=== PATIENT | male | born 1945 | race Caucasian/White ===

== ENCOUNTER 2017-12-27 04:51 | Inpatient (IN) | payer OTHER ==
[2017-12-19 08:27] VITALS: BMI 31.0
--- NOTE | 2017-12-19 09:07 | PAT Medication Instructions ---
Service Date Dec 19, 2017. 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 Instructions For Your Scheduled Surgery - Check with surgeon and locate technician for instructions: Aspirin (Aspir-81), 81 MG PO HS - Hold the following medications 24 hours prior to surgery: Niacin (Niaspan Ext Rel), 500 MG PO HS - Hold the following medications the morning of surgery: Chlorthalidone (Hygroton), 12.5 MG PO QAM Multivitamin (Multivitamin), 1 TAB PO QAM Losartan Potassium (Cozaar), 25 MG PO QAM Guaifenesin (Mucinex Maximum Strength), 1 TAB PO Q12H - Take the following medications the morning of surgery with a sip of water: Oxymetazoline Hcl (Dristan Lingle), 1-2 SPRAYS INTNAS PRN Omeprazole (Prilosec), 20 MG PO QAM Metoprolol Succ (Toprol Xl) (Toprol-Xl), 25 MG PO QAM - Take the following medications as scheduled the night before surgery: [Ana Selzer], 1 TAB PO HS PRN for RN (if needed) Simvastatin (Zocor), 40 MG PO HS Tamsulosin HCl (Tamsulosin HCl), 0.4 MG PO HS Potassium (Potassium), 99 MG PO HS Oxymetazoline Hcl (Dristan Lingle), 1-2 SPRAYS INTNAS PRN (if needed) Guaifenesin (Mucinex Maximum Strength), 1 TAB PO Q12H (if needed) If you have any questions please call us at [phone] or [phone] or [phone]
[~2017-12-27] VITALS: Ht 172.7 cm; Wt 93.5 kg
[2017-12-27] VITALS (11 sets, daily range): BP systolic 116–151; BP diastolic 77–96; PULSE 92–112; TEMP 36.4–36.9; O2SAT 90–98; Ht 172.7 cm; Wt 93.5 kg
[~2017-12-27 04:51] MED LIST: ALKA SELZER PO; ASPI-232 PO; FLM4 PO; GUAI1TAB69 PO; HYG/25 PO; LOSA25TA18 PO; METO25TA3 PO; MULT-506 PO; NIAC500T83 PO; POTA99TA PO; PRLSR20 PO; SIMV40TA4 PO; [UNRECOGNIZED DRUG - CODE] INTNAS
[2017-12-27] MEDS ORDERED: LACTATED RINGER'S 1000ML 1,000 ML IV SCH (06:00)
[2017-12-27] MEDS ORDERED: CEFAZOLIN 2000 MG/60 ML D5W 60 ML IV SCH (06:00)
[2017-12-27] MEDS ORDERED: CEFAZOLIN 2000MG IV PUSH 15 ML IV SCH (06:00)
[2017-12-27] MEDS ORDERED: LIDOCAINE HCL 2% 2 ML VIAL (20MG/ML) ONE (06:32)
[2017-12-27] MEDS ORDERED: ONDANSETRON INJ 2 MG/ML 2 ML VIAL ONE ×2 (06:32→09:35)
[2017-12-27] MEDS ORDERED: HYDROmorphone INJ 2 MG/ML SYR/VIAL ONE (06:32)
[2017-12-27] MEDS ORDERED: PROPOFOL IV EMULSION 10 MG/ML 20 ML VIAL IV ONE (06:32)
[2017-12-27] MEDS ORDERED: FENTANYL CITRATE INJ 50 MCG/1 ML 2 ML VIAL ONE ×3 (06:32→09:28)
[2017-12-27] MEDS ORDERED: SODIUM CHLORIDE 0.9% INJ 10 ML VIAL ONE (06:34)
[2017-12-27] MEDS ORDERED: ACETAMINOPHEN 1000 MG/100 ML IV IV ONE (06:43)
[2017-12-27] MEDS ORDERED: LIDOCAINE HCL 1% 20 ML VIAL ONE (06:53)
[2017-12-27] MEDS ORDERED: BUPIVACAINE 0.5 % 5 MG/1 ML MPF 30ML VIAL ONE (06:53)
[2017-12-27] MEDS ORDERED: BACITRACIN OINT 15 GM TUBE ONE (06:53)
--- NOTE | 2017-12-27 06:55 | History & Physical Bridge Note ---
H&P Re-Evaluation Bridge Note: I have examined the patient, reviewed the History & Physical and in the interval since the performance of the History & Physical I have noted the following changes of clinical significance: No changes noted
[2017-12-27] MEDS ORDERED: ONDANSETRON INJ 2 MG/ML 2 ML VIAL IV PRN (08:45)
[2017-12-27] MEDS ORDERED: EpHEDrine SULFATE INJ 50 MG/ML AMP IV PRN (08:45)
[2017-12-27] MEDS ORDERED: FENTANYL CITRATE INJ 50 MCG/1 ML 2 ML VIAL IV PRN (08:45)
[2017-12-27] MEDS ORDERED: HYDROmorphone INJ 1 MG/ML SYR IV PRN (08:45)
[2017-12-27] MEDS ORDERED: ATROPINE SULFATE 0.1 MG/ML 5ML SYR IV PRN (08:45)
[2017-12-27] MEDS ORDERED: NEOSTIGMINE METHYLSULFATE 5 MG/5 ML SYR ONE (09:35)
[2017-12-27] MEDS ORDERED: GLYCOPYRROLATE INJ 0.2 MG/ML VIAL ONE (09:35)
[2017-12-27] MEDS ORDERED: ROCURONIUM BROMIDE 10 MG/ML 5 ML VIAL IV ONE (10:17)
--- NOTE | 2017-12-27 10:48 | [facility] Post Operative Brief Note ---
Immediate Operative Summary Operative Date Dec 27, 2017. Pre-Operative Diagnosis Multiple colon polyps Post-Operative Diagnosis Same Procedure(s) Performed Right Hemicolectomy Surgeon Dr Ann Fan Blade Aligner Surgeon(s) Manda Diana PA-C Estimated Blood Loss 30ML Findings Consistent with Post-Op Diagnosis same as pre-op Fluids (cc crystalloids) 1500ml Specimens A. Right colon Drains None Anesthesia Type General Complication(s) none Disposition Accompanied Pt To Recover: yes Disposition: Recovery Room / PACU
[2017-12-27] MEDS ORDERED: MIDAZOLAM HCL 1 MG/ML 2ML VIAL ONE (10:55)
[2017-12-27] MEDS ORDERED: MoRPHine SULFATE 2 MG/ML CARP IV PRN (11:15)
[2017-12-27] MEDS ORDERED: NURSING VERBAL MED ORDER ONE ×3 (11:45→16:45)
[2017-12-27] MEDS ORDERED: METOPROLOL TARTRATE 1 MG/ML VIAL ONE (11:58)
[2017-12-27] MEDS ORDERED: ALBUT/IPRATROP 3MG/0.5MG NEB 3 ML VIAL INH SCH (12:00)
[2017-12-27] MEDS ORDERED: METOPROLOL TARTRATE 1 MG/ML VIAL IV PRN (12:15)
--- NOTE | 2017-12-27 13:13 | Anesthesiology Progress Note ---
Anesthesia Post Op Note Date & Time Dec 27, 2017 at 13:11 Vital Signs Pain Intensity: 0 Vital Signs Past 12 Hours Date Time Temp Pulse Resp B/P (MAP) Pulse Ox O2 Delivery O2 Flow Rate FiO2 12/27/17 12:30 106 16 129/74 100 Nasal Cannula 4 12/27/17 12:20 107 16 117/70 97 Nasal Cannula 4 12/27/17 12:10 36.3 101 16 98/74 99 Nasal Cannula 4 12/27/17 12:08 107 103/82 12/27/17 12:00 110 16 116/82 97 Nasal Cannula 4 12/27/17 12:00 111 116/82 12/27/17 11:50 104 18 106/68 97 Nasal Cannula 4 12/27/17 11:48 102 18 96 Nasal Cannula 4.0 12/27/17 11:40 83 18 116/70 94 Nasal Cannula 4 12/27/17 11:30 92 18 96/67 97 Oxymask 10 12/27/17 11:20 92 20 93/68 97 Oxymask 10 12/27/17 11:10 36.4 91 22 123/78 99 Oxymask 15 12/27/17 05:44 36.4 93 20 135/91 94 Room Air Notes Mental Status: alert / awake / arousable, participated in evaluation Pt Amnestic to Procedure: Yes Nausea / Vomiting: adequately controlled Pain: adequately controlled Airway Patency, RR, SpO2: stable & adequate BP & HR: stable & adequate Hydration State: stable & adequate Anesthetic Complications: no major complications apparent The patient with HR 110 after Duoneb given. He was given metoprolol 5mg IV. HR between the 90s and low 100s. Patient did not take his beta dillon today and preop HR was 93. BP stable. Patient feeling well otherwise with no complaints. Patient will be going to telemetry for continuous monitoring. .
[2017-12-27] MEDS ORDERED: D5W AND 1/2NSS + 20MEQ KCL 1,000 ML IV SCH (13:30)
[2017-12-27] MEDS: ONDANSETRON INJ 2 MG/ML 2 ML VIAL IV PRN (15:50)
[2017-12-27] MEDS: HYDROmorphone INJ 1 MG/ML SYR IV PRN ×3 (15:50→23:31)
[2017-12-27] MEDS: CEFTRIAXONE SOD INJ 1 GM in DEXTROSE 5% ADD-VANTAGE 50ML 50 ML IV SCH (19:50)
[2017-12-27 20:56] LABS: HEMATOCRIT 42.2 % (42-52); HEMOGLOBIN 14.9 g/dL (14.0-18.0); MEAN CELL VOLUME 90.8 fL (80-100); MEAN PLATELET VOLUME 8.6 fL (7.4-10.4); PLATELET COUNT 160 K/uL (130-400); RED CELL DISTRIBUTION WIDTH CV 13.9 % (11.5-14.5); RED CELL DISTRIBUTION WIDTH SD 45.7 fL (36.4-46.3); WHITE BLOOD COUNT 16.31 K/uL (4.8-10.8)
[2017-12-27 20:58] LABS: MEAN CORPUSCULAR HGB CONC 35.3 g/dl (32-36)
[2017-12-27 21:18] LABS: CALCIUM 8.1 mg/dl (8.5-10.1); CREATININE 1.6 mg/dl (0.60-1.40); POTASSIUM 3.5 mmol/L (3.5-5.1)
--- NOTE | 2017-12-27 21:20 | Progress Note ---
Progress Note Date of Service Dec 27, 2017. Progress Note ATTENDING NOTE : pt seen and examined, care co ordinated with Roshni Newsome PA-C labs and images reviewed 72 yo M with complicated past medical hx of AAA repair , moderate left carotid artery disease , HTN , hyperlipidemia , hx of palpitation due to PVC , HTN underwent elective Rt Hemicolectomy done for multiple tubular adenoma pt had uneventful surgical procedure seen post op in PCU room 243 -1 no complain of chest pain /pressure /palpitation or SOB mentions NG tube bothering a bit minimum post surgical pain in abdomen -got pain medications 30 mins back not able to pass gas yet P/E: gen: no apparent distress HEENT: NG tube present , with dark bilious drainage Lungs; CTA HT : regular , no lower ext edema, no JVD Abdomen; abdomen binder present , moderately distended abdomen , bowel sound diminished Ext; no rash or deformity Neuro ; no focal deficit A/P : TUBULAR ADENOMA OF COLON: multiple adenomatous polyp noted in Colonoscopy in 01/2017 -was referred to Rt hemicolectomy by GI evaluated by General surgery Dr Ann underwent Rt hemicolectomy today -no perioperative or post op complication noted pathology pending pt is NPO with NG suction reports of adequate pain management with current regimen cont management as per Surgery team HYPONATREMIA : Na 133 changed IVF to NSS + 20 Kcl @ 100 ml/hr ( increased K loss with NG suction / recent bowel resection ) follow PRP in AM CURTIS ON CKD STAGE 3 : baseline Cr 1.4 possible due to post op status /vol loss IVF as above avoid NSAID's follow PRP in AM HX OF ENDOVASCULAR REPAIR OF AAA: on 07/25/13 -stable as per recent Abdomen CT , follows with vascular surgery MODERATE LEFT CAROTID DISEASE : 50-60% narrowing on left ICA gets yearly carotid Doppler pt should be resumed Aspirin , Statin when able to tolerate PO /Ok per surgical team HX OF PVC /PALPITATION : on Toprol XL 25 mg daily tele reveals normal sinus , pt denies of any symptom of palpitation pt had pre op cardiac eval done by Dr Olsen [facility]2017 was negative for stress induced ischemia NPO for recent colon surgery ordered for IV Lopressor 2.5 mg Q 6hrs monitor in tele 24-48 hrs post op full code DVT PROPHYLAXIS: scd and teds -recent colon surgery encourage early ambulation Please refer to further documentation of Nai Newsome PA-C for further discussion of other issues thank you for allowing us to participate in care of the patient will continue to follow the pt during his hospital course Dr Antonio will follow this pt in AM 12/28/17 Vaishali Marin MD
--- NOTE | 2017-12-27 22:04 | Medical Consult ---
Consultation Date of Consultation: Dec 27, 2017. Attending Physician: Cris Ann MD Reason for Consultation: medical management History of Present Illness Pt is 72 y/o M with PMH HTN, dyslipidemia, GERD, CKD III, abdominal aneurysm repair, hx palpitations with PVC's, carotid vascular disease is seen for medical consult s/p R hemicolectomy by Dr Ann today for multiple colon polyps. Pt has NG tube in place. He states moderate abdominal pain that is being controlled with Dilaudid. Has Miller in place and denies any BM or flatulence after surgery. Denies N/V, fever/chills, diaphoresis, HELMS, dizziness, neck pain, CP, SOB, palpitations, cough, paresthesias, extremity weakness, extremity edema , rashes. Past Medical/Surgical History Medical Problems: (1) Abdominal aortic aneurysm Status: Chronic (2) Aneurysm Status: Resolved (3) Benign hypertension Status: Chronic (4) Carotid artery stenosis Status: Chronic (5) Chronic obstructive lung disease Status: Chronic (6) CKD (chronic kidney disease), stage III Status: Chronic (7) Cough Status: Resolved (8) Diverticular disease of colon Status: Resolved (9) Dyslipidemia Status: Chronic (10) Elevated D-dimer Status: Resolved (11) Finger laceration involving tendon Status: Resolved (12) Gastroesophageal reflux disease Status: Chronic (13) GERD (gastroesophageal reflux disease) Status: Chronic (14) Headache Status: Resolved (15) NO MRI SCANS Permanent Comment: s/p clipping intracranial aneurysm Status: Chronic (16) Repair cerebral aneurysm Status: Resolved (17) Spontaneous pneumothorax Status: Resolved Surgical Problems: (1) Back surgery Status: Resolved (2) Cholecystectomy Status: Resolved (3) Hernia repair Status: Resolved (4) History of abdominal aortic aneurysm repair Status: Resolved Family History Unable to obtain as pt was foster child and unaware of FH Social History Smoking Status: Former Smoker Smokeless Tobacco Use: No Alcohol Use: none Drug Use: none Marital Status: Housing Status: lives with family Occupation Status: employed Allergies Coded Allergies: Heparin (Verified Allergy, Severe, Do not give the patient IV heparin or SubQ heparin, 12/27/17) FOR [id number] ADMISSION Hydralazine (Verified Adverse Reaction, Intermediate, DELIRIUM, 12/27/17) ALEXIA Inhibitors (Verified Adverse Reaction, Unknown, COUGH, 12/27/17) Salicylates (Verified Adverse Reaction, Unknown, STOMACH IRRITATION, ) Home Medications Active Reported Dristan [place] (Oxymetazoline Hcl) 0.05 % Spr 1-2 Sprays INTNAS BID PRN 3 Days max of 3 days Tamsulosin HCl 0.4 Mg Cap 0.4 Mg PO HS Potassium 99 Mg Tab 99 Mg PO HS Cozaar (Losartan Potassium) 25 Mg Tab 25 Mg PO QAM Aspir-81 (Aspirin) 81 Mg Tab 81 Mg PO DAILY Niaspan Ext Rel (Niacin) 500 Mg Tabcr 500 Mg PO HS Hygroton (Chlorthalidone) 25 Mg Tab 12.5 Mg PO QAM Zocor (Simvastatin) 40 Mg Tab 40 Mg PO HS Toprol-Xl (Metoprolol Succinate) 25 Mg Tabcr 25 Mg PO QAM Multivitamin (Multivitamins) Tab 1 Tab PO QAM Prilosec (Omeprazole) 20 Mg Capcr 20 Mg PO QAM Current Inpatient Medications Current Inpatient Medications Medications (Trade) Dose Ordered Sig/Luis Route Start Time Stop Time Status Last Admin Dose Admin Potassium Chloride/Dextrose/ Sod Cl 1,000 ml @ 100 mls/hr Q10H IV 12/27/17 13:30 01/26/18 13:29 12/27/17 14:09 100 MLS/HR Ceftriaxone Sodium 1 gm/ Dextrose 50 ml @ 100 mls/hr Q12 IV 12/27/17 21:00 12/28/17 20:59 12/27/17 19:50 100 MLS/HR Ondansetron HCl (Zofran Inj) 4 mg Q4H PRN IV 12/27/17 11:15 01/26/18 11:14 12/27/17 15:50 4 MG Morphine Sulfate (MoRPHine SULFATE INJ) 2 mg Q3HWA PRN IV 12/27/17 11:15 01/10/18 11:14 Hydromorphone HCl (Dilaudid Inj) 1 mg Q3H PRN IV 12/27/17 11:15 01/10/18 11:14 Hydromorphone HCl (Dilaudid Inj) 1 mg Q3H PRN IV 12/27/17 11:15 01/10/18 11:14 12/27/17 19:50 1 MG Metoprolol Tartrate (Lopressor Iv) 2.5 mg Q6 IV. 12/27/17 20:30 3/8/18 20:29 UNV Review of Systems See HPI for pertinent positives & negatives. All other systems reviewed and were otherwise negative Eyes: No diplopia ENT: No nasal symptoms Physical Exam Date Time Temp Pulse Resp B/P (MAP) Pulse Ox O2 Delivery O2 Flow Rate FiO2 12/27/17 19:50 36.9 101 21 138/78 (98) 93 Nasal Cannula 4.0 12/27/17 16:00 Nasal Cannula 4.0 12/27/17 15:23 36.8 112 22 151/96 (114) 92 Nasal Cannula 4.0 12/27/17 14:00 36.5 108 18 135/87 (103) 92 Nasal Cannula 4.0 12/27/17 14:00 36.5 110 18 127/83 (98) 93 Nasal Cannula 4.0 12/27/17 13:30 36.4 109 18 137/84 (101) 92 Nasal Cannula 4.0 12/27/17 13:15 36.4 110 18 118/78 (91) 92 Nasal Cannula 4.0 12/27/17 13:03 36.4 108 18 124/77 90 Nasal Cannula 4.0 12/27/17 13:00 36.4 107 18 116/77 (90) 92 Nasal Cannula 4.0 12/27/17 12:45 36.4 108 18 124/77 (93) 98 Nasal Cannula 4.0 108 12/27/17 12:30 106 16 129/74 100 Nasal Cannula 4 12/27/17 12:20 107 16 117/70 97 Nasal Cannula 4 12/27/17 12:10 36.3 101 16 98/74 99 Nasal Cannula 4 12/27/17 12:08 107 103/82 12/27/17 12:00 110 16 116/82 97 Nasal Cannula 4 12/27/17 12:00 111 116/82 12/27/17 11:50 104 18 106/68 97 Nasal Cannula 4 12/27/17 11:48 102 18 96 Nasal Cannula 4.0 12/27/17 11:40 83 18 116/70 94 Nasal Cannula 4 12/27/17 11:30 92 18 96/67 97 Oxymask 10 12/27/17 11:20 92 20 93/68 97 Oxymask 10 12/27/17 11:10 36.4 91 22 123/78 99 Oxymask 15 12/27/17 05:44 36.4 93 20 135/91 94 Room Air General Appearance: WD/WN, no apparent distress (resting in bed) Head: normocephalic, atraumatic Eyes: normal inspection, PERRL, EOMI, sclerae normal ENT: hearing grossly normal, pharynx normal, + pertinent finding (mucous membranes moist) Neck: supple, no JVD, trachea midline Respiratory/Chest: lungs clear, normal breath sounds, no respiratory distress Cardiovascular: no murmur, normal peripheral pulses, + tachycardia (102) Abdomen/GI: + pertinent finding (quiet bs, dressing in place to anterior abdomen, slight bloody discharge noted on dressing, abdominal binder in place, tenderness with manipulation of binder, soft) Extremities/Musculoskelatal: normal capillary refill, no pedal edema, non- tender, + pertinent finding (pedal pushes and pulls intact bilaterally, pt with SCD's) Neurologic/Psych: alert, normal mood/affect, oriented x 3 Skin: normal color, warm/dry Laboratory Results Last 24 Hours Test 12/27/17 20:42 White Blood Count 16.31 K/uL Red Blood Count 4.65 M/uL Hemoglobin 14.9 g/dL Hematocrit 42.2 % Mean Corpuscular Volume 90.8 fL Mean Corpuscular Hemoglobin 32.0 pg Mean Corpuscular Hemoglobin Concent 35.3 g/dl RDW Standard Deviation 45.7 fL RDW Coefficient of Variation 13.9 % Platelet Count 160 K/uL Mean Platelet Volume 8.6 fL Assessment & Plan Pt post op day# 0 S/P R Hemicolectomy by Dr Ann for multiple adenomatous colon polyps Pt with NG tube in place and NPO at this time -pain management per general surgery -wound management per surgery -PT/OT as appropriate -DVT prophylaxis per surgery -monitor H&H for acute blood loss anemia HYPONATREMIA Na 133 changed IVF to NSS + 20 Kcl ( increased K loss with NG suction /recent bowel resection ) follow PRP MODERATE LEFT CAROTID DISEASE Hx 50-60% narrowing on left ICA Pt NPO currently, however suggest resuming ASA, simvastatin when able per surgery team HX ABDOMINAL ANEURYSM REPAIR F/U with vascular surgery and recent abd ct is stable HX OF PVC's /PALPITATIONS Pt follows with cardiology, had pre-op clearance in 12/[address] Downing. Sinus rhythm on monitor today. Denies any palpitations, CP, or SOB currently Pt on metoprolol, however is NPO currently. Lopressor 2.5 mg IV Q 6hrs ordered Continue to monitor DYSLIPIDEMIA holding simvastatin at this time with pt being NPO HTN stable currently holding oral losartan and metoprolol as pt is NPO. Lopressor IV ordered continue to monitor DVT Prophylaxis -per surgery team Disposition admitted tele Full Code as per discussion with pt Follows with Dr Torres for routine care Pt was seen with Dr Marin. See addendum Pt will be followed by Dr Antonio throughout remaining hospital course ATTENDING NOTE : pt seen and examined, care co ordinated with Roshni Newsome PA-C labs and images reviewed 72 yo M with complicated past medical hx of AAA repair , moderate left carotid artery disease , HTN , hyperlipidemia , hx of palpitation due to PVC , HTN underwent elective Rt Hemicolectomy done for multiple tubular adenoma pt had uneventful surgical procedure seen post op in PCU room 243 -1 no complain of chest pain /pressure /palpitation or SOB mentions NG tube bothering a bit minimum post surgical pain in abdomen -got pain medications 30 mins back not able to pass gas yet P/E: gen: no apparent distress HEENT: NG tube present , with dark bilious drainage Lungs; CTA HT : regular , no lower ext edema, no JVD Abdomen; abdomen binder present , moderately distended abdomen , bowel sound diminished Ext; no rash or deformity Neuro ; no focal deficit A/P : TUBULAR ADENOMA OF COLON: multiple adenomatous polyp noted in Colonoscopy in 01/2017 -was referred to Rt hemicolectomy by GI evaluated by General surgery Dr Ann underwent Rt hemicolectomy today -no perioperative or post op complication noted pathology pending pt is NPO with NG suction reports of adequate pain management with current regimen cont management as per Surgery team HYPONATREMIA : Na 133 changed IVF to NSS + 20 Kcl @ 100 ml/hr ( increased K loss with NG suction / recent bowel resection ) follow PRP in AM CURTIS ON CKD STAGE 3 : baseline Cr 1.4 possible due to post op status /vol loss IVF as above avoid NSAID's follow PRP in AM HX OF ENDOVASCULAR REPAIR OF AAA: on 07/25/13 -stable as per recent Abdomen CT , follows with vascular surgery MODERATE LEFT CAROTID DISEASE : 50-60% narrowing on left ICA gets yearly carotid Doppler pt should be resumed Aspirin , Statin when able to tolerate PO /Ok per surgical team HX OF PVC /PALPITATION : on Toprol XL 25 mg daily tele reveals normal sinus , pt denies of any symptom of palpitation pt had pre op cardiac eval done by Dr Raúl Hardy [facility] stress test on 04/2017 was negative for stress induced ischemia NPO for recent colon surgery ordered for IV Lopressor 2.5 mg Q 6hrs monitor in tele 24-48 hrs post op full code DVT PROPHYLAXIS: scd and teds -recent colon surgery encourage early ambulation Please refer to further documentation of Nai Newsome PA-C for further discussion of other issues thank you for allowing us to participate in care of the patient will continue to follow the pt during his hospital course Dr Antonio will follow this pt in AM 12/28/17 Vaishali Marin MD
[2017-12-27] MEDS: NSS + 20MEQ KCL 1000ML 1,000 ML IV SCH (22:34)
[2017-12-27] MEDS: METOPROLOL TARTRATE 1 MG/ML VIAL IV. SCH (22:37)
[2017-12-28] MEDS: METOPROLOL TARTRATE 1 MG/ML VIAL IV. SCH ×5 (00:08→23:32)
[2017-12-28] MEDS: HYDROmorphone INJ 1 MG/ML SYR IV PRN ×6 (03:08→22:49)
[2017-12-28 03:30] VITALS: BP 130/76; PULSE 87; TEMP 36.6; O2SAT 92
[2017-12-28] MEDS ORDERED: CEFAZOLIN SOD 2000MG/15 ML IV PUSH IV ONE (06:00)
[2017-12-28 07:14] LABS: BASO % 0.1 %; BASO ABS # 0.01 K/uL (0-0.2); HEMATOCRIT 42.7 % (42-52); HEMOGLOBIN 14.8 g/dL (14.0-18.0); IG# 0.02 K/uL (0.00-0.02); LYMPH % 10.1 %; LYMPH ABS # 1.42 K/uL (1.2-3.4); MEAN CELL VOLUME 91.8 fL (80-100); MEAN CORPUSCULAR HEMOGLOBIN 31.8 pg (25-34); MEAN CORPUSCULAR HGB CONC 34.7 g/dl (32-36); MEAN PLATELET VOLUME 8.7 fL (7.4-10.4); MONO ABS # 1.69 K/uL (0.11-0.59); NEUT % 77.7 %; NEUT ABS # 10.92 K/uL (1.4-6.5); PLATELET COUNT 161 K/uL (130-400); RED CELL DISTRIBUTION WIDTH CV 14.2 % (11.5-14.5); RED CELL DISTRIBUTION WIDTH SD 47.7 fL (36.4-46.3); WHITE BLOOD COUNT 14.06 K/uL (4.8-10.8)
[2017-12-28 07:59] VITALS: BP 128/82; PULSE 83; TEMP 37.1; O2SAT 92
[2017-12-28 08:02] LABS: ALBUMIN 3.1 gm/dl (3.4-5.0); CALCIUM 8.1 mg/dl (8.5-10.1); CREATININE 1.34 mg/dl (0.60-1.40); POTASSIUM 3.7 mmol/L (3.5-5.1); TOTAL PROTEIN 6.6 gm/dl (6.4-8.2)
--- NOTE | 2017-12-28 08:06 | OPERATIVE REPORT ---
DATE OF OPERATION: 12/27/2017 PREOPERATIVE DIAGNOSIS: Multiple colon polyps. POSTOPERATIVE DIAGNOSIS: Same. OPERATION: Right hemicolectomy. SURGEON: Cris Ann MD FASTENER SEWING MACHINE OPERATOR: EUGENE Porter ANESTHESIA: General. ESTIMATED BLOOD LOSS: About 30 mL. FINDINGS: Multiple colon polyps. COMPLICATIONS: None. INDICATIONS FOR THE PROCEDURE: This is a 72-year-old gentleman who is referred by the GI doctor for postop colonoscopy polypectomy and patient had multiple polyps mostly on the right side colon. The patient referred to do the right hemicolectomy. I did talk to the patient and patient's family member about the benefit and risk, alternate procedure. I indicated the risks may include but not limited such as bleeding, infection, abscess, anastomosis leak, injury to bowel, fistular sepsis, myocardial infarction, DVT, stroke, even . They understand. The patient signed informed consent and I answered all questions. DETAILS OF PROCEDURE: We brought the patient to the OR, put the patient in the supine position. The patient received SCD on bilateral legs to prevent DVT. Also, the patient received 2 grams Ancef IV for prophylactic antibiotic. The patient received general anesthesia without difficulty. Miller catheter inserted. The abdomen was prepped and draped in routine sterile fashion. After time out, I made a midline incision into the abdominal cavity without difficulty, explored the abdomen, checked the liver and no lesions on the liver and stomach shows normal findings and small bowel normal finding, no free fluid in the abdominal cavity. NG tube was located in the stomach and then I mobilized lateral peritoneum for right side of the colon and did reach to the transverse colon. We took down the hepatic ligature, used the harmonic and the right-sided ureter and duodenum identified and protected all times. Then we took down the right ileocolic artery with metal clip and also with suture ligation with 2-0 Vicryl and also I took down the right colon and double suture ligated the right colon artery at the proximal and ligated right colon artery at the distal and transected the right colon. Once the colon mobilized, reached the middle of the transverse colon, keep blood supply to the middle of the colon and then I mobilized the small bowel. It was 10 cm from the cecum and that showed small bowel to large bowel anastomosis from 10 cm of cecum to the transverse colon in the middle, good blood supply on the small bowel, large bowel and I used an 80 mm Endo-DONG staple for anastomosis to small bowel to large bowel. Rechecked, no active bleeding no leak. Then I chose the 90 mm TA staple to close the small bowel, large bowel opening. Then I used a knife to completely remove the specimen and rechecked no active bleeding, no leak on the anastomosis. Then I used 3-0 Vicryl, reinforced the anastomosis inter ruptedly and then I closed the mesenteric defect, used 3-0 Vicryl interruptedly. The anastomosis site was wide open and no tension. Hemostasis was obtained. Then we used normal saline to flush the abdomen and suctioned all the fluid, no active bleeding, no injury to bowel, good blood circulation on the anastomosis, small bowel, large bowel. Then I closed the abdomen in fascial layer by using #1 PDS continuous running and closed subcutaneous layer by using 2-0 Vicryl continuous running, closed skin by using staple. We put the dressing on. The patient tolerated the procedure well. All the instrument, needle and sponge count correct x2 at the end of the case. The specimen sent to pathology. The patient was extubated in the OR and transferred to recovery room in stable condition. After the procedure, I did talk to the patient's family member about the OR finding and procedure we did, they understand. I attest to the content of the Intraoperative Record and any orders documented therein. Any exceptions are noted below. STANISLAV
[2017-12-28] MEDS: NSS + 20MEQ KCL 1000ML 1,000 ML IV SCH ×2 (08:11→17:29)
[2017-12-28] MEDS: CEFTRIAXONE SOD INJ 1 GM in DEXTROSE 5% ADD-VANTAGE 50ML 50 ML IV SCH (08:12)
--- NOTE | 2017-12-28 09:54 | Surgery Progress Note ---
Surgery Progress Note Date of Service Dec 28, 2017. Subjective Post OP Day: 1 pt is stable over night, pt develops headach because of NG tube, pt said he can not tolerated the NG tube, pt wants to remove NG tube, pt denies nausea, no vomiting, Objective Vital Signs: Date Time Temp Pulse Resp B/P (MAP) Pulse Ox O2 Delivery O2 Flow Rate FiO2 12/28/17 07:59 37.1 83 20 128/82 (97) 92 Nasal Cannula 4.0 12/28/17 05:52 88 149/82 12/28/17 04:00 Nasal Cannula 4.0 12/28/17 03:30 36.6 87 18 130/76 (94) 92 Nasal Cannula 4.0 12/28/17 00:08 88 124/75 12/28/17 00:01 Nasal Cannula 4.0 12/27/17 23:30 36.8 92 22 148/79 (102) 93 Room Air 12/27/17 22:37 96 137/80 12/27/17 20:00 Nasal Cannula 4.0 12/27/17 19:50 36.9 101 21 138/78 (98) 93 Nasal Cannula 4.0 12/27/17 16:00 Nasal Cannula 4.0 12/27/17 15:23 36.8 112 22 151/96 (114) 92 Nasal Cannula 4.0 12/27/17 14:00 36.5 108 18 135/87 (103) 92 Nasal Cannula 4.0 12/27/17 14:00 36.5 110 18 127/83 (98) 93 Nasal Cannula 4.0 12/27/17 13:30 36.4 109 18 137/84 (101) 92 Nasal Cannula 4.0 12/27/17 13:15 36.4 110 18 118/78 (91) 92 Nasal Cannula 4.0 12/27/17 13:03 36.4 108 18 124/77 90 Nasal Cannula 4.0 12/27/17 13:00 36.4 107 18 116/77 (90) 92 Nasal Cannula 4.0 12/27/17 12:45 36.4 108 18 124/77 (93) 98 Nasal Cannula 4.0 108 12/27/17 12:30 106 16 129/74 100 Nasal Cannula 4 12/27/17 12:20 107 16 117/70 97 Nasal Cannula 4 12/27/17 12:10 36.3 101 16 98/74 99 Nasal Cannula 4 12/27/17 12:08 107 103/82 12/27/17 12:00 110 16 116/82 97 Nasal Cannula 4 12/27/17 12:00 111 116/82 12/27/17 11:50 104 18 106/68 97 Nasal Cannula 4 12/27/17 11:48 102 18 96 Nasal Cannula 4.0 12/27/17 11:40 83 18 116/70 94 Nasal Cannula 4 12/27/17 11:30 92 18 96/67 97 Oxymask 10 12/27/17 11:20 92 20 93/68 97 Oxymask 10 12/27/17 11:10 36.4 91 22 123/78 99 Oxymask 15 General Appearance: WD/WN, no apparent distress Head: normocephalic Neck: supple, no adenopathy Respiratory/Chest: chest non-tender, lungs clear, normal breath sounds Cardiovascular: regular rate, rhythm, no edema, no gallop, no JVD, no murmur Abdomen: normal bowel sounds, non distended, soft, no organomegaly, + tenderness (slight tenderness at incision site, ) Incision(s): clean, dry, intact Extremities: normal range of motion, non-tender, normal inspection Laboratory Results: Results Past 24 Hours Test 12/27/17 20:42 12/28/17 06:49 Range/Units White Blood Count 16.31 14.06 4.8-10.8 K/uL Red Blood Count 4.65 4.65 4.7-6.1 M/uL Hemoglobin 14.9 14.8 14.0-18.0 g/dL Hematocrit 42.2 42.7 42-52 % Mean Corpuscular Volume 90.8 91.8 80-100 fL Mean Corpuscular Hemoglobin 32.0 31.8 25-34 pg Mean Corpuscular Hemoglobin Concent 35.3 34.7 32-36 g/dl RDW Standard Deviation 45.7 47.7 36.4-46.3 fL RDW Coefficient of Variation 13.9 14.2 11.5-14.5 % Platelet Count 160 161 130-400 K/uL Mean Platelet Volume 8.6 8.7 7.4-10.4 fL Sodium Level 133 135 136-145 mmol/L Potassium Level 3.5 3.7 3.5-5.1 mmol/L Chloride Level 99 101 98-107 mmol/L Carbon Dioxide Level 28 29 21-32 mmol/L Anion Gap 6.0 5.0 3-11 mmol/L Blood Urea Nitrogen 15 14 7-18 mg/dl Creatinine 1.60 1.34 0.60-1.40 mg/dl Est Creatinine Clear Calc Drug Dose 45.0 53.1 ml/min Estimated GFR () 48.5 60.1 Estimated GFR (Non- 41.8 51.8 BUN/Creatinine Ratio 9.5 10.7 10-20 Random Glucose 155 96 70-99 mg/dl Calcium Level 8.1 8.1 8.5-10.1 mg/dl Neutrophils (%) (Auto) 77.7 % Lymphocytes (%) (Auto) 10.1 % Monocytes (%) (Auto) 12.0 % Eosinophils (%) (Auto) 0.0 % Basophils (%) (Auto) 0.1 % Neutrophils # (Auto) 10.92 1.4-6.5 K/uL Lymphocytes # (Auto) 1.42 1.2-3.4 K/uL Monocytes # (Auto) 1.69 0.11-0.59 K/uL Eosinophils # (Auto) 0.00 0-0.5 K/uL Basophils # (Auto) 0.01 0-0.2 K/uL Immature Granulocyte % (Auto) 0.1 % Immature Granulocyte # (Auto) 0.02 0.00-0.02 K/uL Magnesium Level 1.8 1.8-2.4 mg/dl Total Bilirubin 0.6 0.2-1 mg/dl Aspartate Amino Transf (AST/SGOT) 37 15-37 U/L Alanine Aminotransferase (ALT/SGPT) 28 12-78 U/L Alkaline Phosphatase 59 45-117 U/L Total Protein 6.6 6.4-8.2 gm/dl Albumin 3.1 3.4-5.0 gm/dl Globulin 3.5 2.5-4.0 gm/dl Albumin/Globulin Ratio 0.9 0.9-2 Chemistry Specimen Hemolysis Assessment & Plan F/U S/P right himecolectomy, POD 1 stable, pt wants to remove the NG tube, the NG tube is removed, I instructed pt, pt may need re-insertion NG tube if he develops nausea, vomiting, could cause complication without NG tube, pt understood, I answered all questions, OOB base on high WBC [id number], and pt has sinus infection, start cipro + flagyl, continue treatment repeat labs in AM, will F/U
[2017-12-28 11:02] VITALS: BP 150/75; PULSE 88; TEMP 37.7; O2SAT 88
[2017-12-28] MEDS: METRONIDAZOLE / NSS 500 MG in PREMIXED NSS 100 ML IV SCH ×2 (11:30→17:29)
[2017-12-28 14:52] VITALS: BP 154/80; PULSE 97; TEMP 37.3; O2SAT 90
--- NOTE | 2017-12-28 14:59 | Progress Note ---
Internal Med Progress Note Date of Service: Dec 28, 2017. Provider Documentation: SUBJECTIVE: THe patient was seen and examined Complains of abdominal pain and nausea Denies any CP.Palpitation or SOB NGT is out OBJECTIVE: Vital Signs-as noted below Exam: General-Minimal distress at rest OOB in a chair Eyes-normal ENT-normal Neck-supple Lungs-Clear to ausucltate bilaterally Heart-Regular,no murmur Abdomen-Distended,firm,tender ,bowel sound sluggish Extremities-Trace edema bilaterally Neuro-AAOx3 Lab data as noted below. ASSESSMENT & PLAN: S/P R Hemicolectomy for multiple adenomatous colon polyps Pt post op day# 1 Pt with NG tube in place and NPO at this time-NGT os out now Management as per Surgeon Pain management per general surgery Has been on Cipro and Flagyl DVT prophylaxis per surgery Monitor H&H for acute blood loss anemia HYPONATREMIA Na 133 changed IVF to NSS + 20 Kcl ( increased K loss with NG suction /recent bowel resection ) follow PRP-better MODERATE LEFT CAROTID DISEASE Hx 50-60% narrowing on left ICA Pt NPO currently, however suggest resuming ASA, simvastatin when able per surgery team HX ABDOMINAL ANEURYSM REPAIR F/U with vascular surgery and recent abd ct is stable No acute issue HX OF PVC's /PALPITATIONS Pt follows with cardiology, had pre-op clearance in 12/[address] Downing. Sinus rhythm on monitor today. Denies any palpitations, CP, or SOB currently Pt on metoprolol, however is NPO currently. Lopressor 2.5 mg IV Q 6hrs ordered Continue to monitor-no more PVCs No cardiac symptoms DYSLIPIDEMIA Hold simvastatin at this time with pt being NPO HTN Holding oral losartan and metoprolol as pt is NPO. Lopressor IV ordered Remains stable DVT Prophylaxis -per surgery team Disposition admitted tele Full Code as per discussion with pt Follows with Dr Torres for routine care Vital Signs: Date Time Temp Pulse Resp B/P (MAP) Pulse Ox O2 Delivery O2 Flow Rate FiO2 12/28/17 12:00 Nasal Cannula 2.0 12/28/17 11:31 75 12/28/17 11:02 37.7 88 20 150/75 (100) 88 Room Air 12/28/17 08:00 Room Air 12/28/17 07:59 37.1 83 20 128/82 (97) 92 Nasal Cannula 4.0 12/28/17 05:52 88 149/82 12/28/17 04:00 Nasal Cannula 4.0 12/28/17 03:30 36.6 87 18 130/76 (94) 92 Nasal Cannula 4.0 12/28/17 00:08 88 124/75 12/28/17 00:01 Nasal Cannula 4.0 12/27/17 23:30 36.8 92 22 148/79 (102) 93 Room Air 12/27/17 22:37 96 137/80 12/27/17 20:00 Nasal Cannula 4.0 12/27/17 19:50 36.9 101 21 138/78 (98) 93 Nasal Cannula 4.0 12/27/17 16:00 Nasal Cannula 4.0 12/27/17 15:23 36.8 112 22 151/96 (114) 92 Nasal Cannula 4.0 Lab Results: Results Past 24 Hours Test 12/27/17 20:42 12/28/17 06:49 Range/Units White Blood Count 16.31 14.06 4.8-10.8 K/uL Red Blood Count 4.65 4.65 4.7-6.1 M/uL Hemoglobin 14.9 14.8 14.0-18.0 g/dL Hematocrit 42.2 42.7 42-52 % Mean Corpuscular Volume 90.8 91.8 80-100 fL Mean Corpuscular Hemoglobin 32.0 31.8 25-34 pg Mean Corpuscular Hemoglobin Concent 35.3 34.7 32-36 g/dl RDW Standard Deviation 45.7 47.7 36.4-46.3 fL RDW Coefficient of Variation 13.9 14.2 11.5-14.5 % Platelet Count 160 161 130-400 K/uL Mean Platelet Volume 8.6 8.7 7.4-10.4 fL Sodium Level 133 135 136-145 mmol/L Potassium Level 3.5 3.7 3.5-5.1 mmol/L Chloride Level 99 101 98-107 mmol/L Carbon Dioxide Level 28 29 21-32 mmol/L Anion Gap 6.0 5.0 3-11 mmol/L Blood Urea Nitrogen 15 14 7-18 mg/dl Creatinine 1.60 1.34 0.60-1.40 mg/dl Est Creatinine Clear Calc Drug Dose 45.0 53.1 ml/min Estimated GFR () 48.5 60.1 Estimated GFR (Non- 41.8 51.8 BUN/Creatinine Ratio 9.5 10.7 10-20 Random Glucose 155 96 70-99 mg/dl Calcium Level 8.1 8.1 8.5-10.1 mg/dl Neutrophils (%) (Auto) 77.7 % Lymphocytes (%) (Auto) 10.1 % Monocytes (%) (Auto) 12.0 % Eosinophils (%) (Auto) 0.0 % Basophils (%) (Auto) 0.1 % Neutrophils # (Auto) 10.92 1.4-6.5 K/uL Lymphocytes # (Auto) 1.42 1.2-3.4 K/uL Monocytes # (Auto) 1.69 0.11-0.59 K/uL Eosinophils # (Auto) 0.00 0-0.5 K/uL Basophils # (Auto) 0.01 0-0.2 K/uL Immature Granulocyte % (Auto) 0.1 % Immature Granulocyte # (Auto) 0.02 0.00-0.02 K/uL Magnesium Level 1.8 1.8-2.4 mg/dl Total Bilirubin 0.6 0.2-1 mg/dl Aspartate Amino Transf (AST/SGOT) 37 15-37 U/L Alanine Aminotransferase (ALT/SGPT) 28 12-78 U/L Alkaline Phosphatase 59 45-117 U/L Total Protein 6.6 6.4-8.2 gm/dl Albumin 3.1 3.4-5.0 gm/dl Globulin 3.5 2.5-4.0 gm/dl Albumin/Globulin Ratio 0.9 0.9-2 Chemistry Specimen Hemolysis
[2017-12-28 20:00] VITALS: BP 155/85; PULSE 98; TEMP 37.2; O2SAT 92
[2017-12-28] MEDS ORDERED: CIPROFLOXACIN / D5W 400 MG in PREMIXED IN D5W 200 ML IV SCH (21:00)
[2017-12-28] MEDS ORDERED: DiphenhydrAMINE INJ 12.5 MG in SYRINGE 0 ML IV SCH (23:00)
--- NOTE | 2017-12-28 23:00 | Progress Note ---
Progress Note Date of Service Dec 28, 2017. Progress Note 2300 Called by nurse regarding red streaking and pruritis noted during cipro infusion this evening. At bedside VSS and he is afebrile without any respiratory distress. Lungs are clear to auscultation and no airway swelling or hives present. There is slight red streaking proximal to the PIV site on the upper L arm. The patient is stable and doing well. He is NPO post-op. Will hold cipro, cont flagyl overnight and have surgery reassess the need for abx in the morning. Benadryl 12.5mg IV x one dose now. DO Celio
[2017-12-28] MEDS ORDERED: DiphenhydrAMINE HCL 50 MG/ML VIAL IV ONE (23:15)
[2017-12-28 23:30] VITALS: BP 130/78; PULSE 90; TEMP 37.4; O2SAT 89
[2017-12-29] MEDS: METRONIDAZOLE / NSS 500 MG in PREMIXED NSS 100 ML IV SCH ×3 (02:40→18:06)
[2017-12-29 03:30] VITALS: BP 150/90; PULSE 101; TEMP 37.6; O2SAT 89
[2017-12-29] MEDS: HYDROmorphone INJ 1 MG/ML SYR IV PRN ×4 (06:31→23:30)
[2017-12-29] MEDS: METOPROLOL TARTRATE 1 MG/ML VIAL IV. SCH ×4 (06:38→23:34)
[2017-12-29 08:00] VITALS: BP 142/77; PULSE 97; TEMP 37.1; O2SAT 94
[2017-12-29 08:05] LABS: BASO % 0.1 %; BASO ABS # 0.01 K/uL (0-0.2); EOS % 0.1 %; EOS ABS # 0.01 K/uL (0-0.5); HEMATOCRIT 41.8 % (42-52); HEMOGLOBIN 14.3 g/dL (14.0-18.0); IG# 0.04 K/uL (0.00-0.02); LYMPH % 9.5 %; LYMPH ABS # 1.26 K/uL (1.2-3.4); MEAN CELL VOLUME 92.3 fL (80-100); MEAN CORPUSCULAR HEMOGLOBIN 31.6 pg (25-34); MEAN CORPUSCULAR HGB CONC 34.2 g/dl (32-36); MEAN PLATELET VOLUME 8.6 fL (7.4-10.4); MONO ABS # 1.46 K/uL (0.11-0.59); NEUT ABS # 10.48 K/uL (1.4-6.5); PLATELET COUNT 157 K/uL (130-400); RED CELL DISTRIBUTION WIDTH CV 14.5 % (11.5-14.5); RED CELL DISTRIBUTION WIDTH SD 48.9 fL (36.4-46.3); WHITE BLOOD COUNT 13.26 K/uL (4.8-10.8)
[2017-12-29 08:39] LABS: ALBUMIN 3.1 gm/dl (3.4-5.0); CREATININE 1.24 mg/dl (0.60-1.40); POTASSIUM 3.6 mmol/L (3.5-5.1)
[2017-12-29 08:42] LABS: TOTAL PROTEIN 6.5 gm/dl (6.4-8.2)
[2017-12-29] MEDS: NSS + 20MEQ KCL 1000ML 1,000 ML IV SCH ×2 (09:35→16:57)
[2017-12-29] MEDS ORDERED: PANTOprazole INJ 40 MG in SYRINGE 0 ML IV ONE (10:45)
[2017-12-29 12:07] VITALS: BP 150/80; PULSE 90; TEMP 37.1; O2SAT 92
--- NOTE | 2017-12-29 12:43 | Surgery Progress Note ---
Surgery Progress Note Date of Service Dec 29, 2017. Subjective Post OP Day: 2 + feeling well, + bowel movement, + flatus pt is doing better, passed BM x2. and gas, no nausea, no vomiting, Objective Vital Signs: Date Time Temp Pulse Resp B/P (MAP) Pulse Ox O2 Delivery O2 Flow Rate FiO2 12/29/17 12:09 90 150/80 12/29/17 12:07 37.1 90 16 150/80 (103) 92 Room Air 12/29/17 08:00 Nasal Cannula 3.0 12/29/17 08:00 37.1 97 20 142/77 (98) 94 Nasal Cannula 3.0 12/29/17 06:38 99 150/90 12/29/17 04:00 Room Air 12/29/17 03:30 37.6 101 25 150/90 (110) 89 Room Air 12/29/17 00:00 Room Air 12/28/17 23:32 92 155/85 12/28/17 23:30 37.4 90 23 130/78 (95) 89 Room Air 12/28/17 20:00 37.2 98 26 155/85 (108) 92 Room Air 12/28/17 20:00 Nasal Cannula 2.0 12/28/17 17:29 97 154/80 12/28/17 16:00 Nasal Cannula 2.0 12/28/17 14:52 37.3 97 23 154/80 (104) 90 Room Air General Appearance: WD/WN, no apparent distress Head: normocephalic Neck: supple, no JVD Respiratory/Chest: chest non-tender, lungs clear Cardiovascular: regular rate, rhythm, no edema, no gallop, no JVD, no murmur Abdomen: normal bowel sounds, non tender, non distended, soft Incision(s): clean, dry, intact Extremities: normal range of motion, non-tender, normal inspection Laboratory Results: Results Past 24 Hours Test 12/28/17 19:00 12/29/17 00:00 12/29/17 06:39 12/29/17 07:42 Range/Units Bedside Glucose 96 98 95 70-99 mg/dl White Blood Count 13.26 4.8-10.8 K/uL Red Blood Count 4.53 4.7-6.1 M/uL Hemoglobin 14.3 14.0-18.0 g/dL Hematocrit 41.8 42-52 % Mean Corpuscular Volume 92.3 80-100 fL Mean Corpuscular Hemoglobin 31.6 25-34 pg Mean Corpuscular Hemoglobin Concent 34.2 32-36 g/dl Platelet Count 157 130-400 K/uL Mean Platelet Volume 8.6 7.4-10.4 fL Neutrophils (%) (Auto) 79.0 % Lymphocytes (%) (Auto) 9.5 % Monocytes (%) (Auto) 11.0 % Eosinophils (%) (Auto) 0.1 % Basophils (%) (Auto) 0.1 % Neutrophils # (Auto) 10.48 1.4-6.5 K/uL Lymphocytes # (Auto) 1.26 1.2-3.4 K/uL Monocytes # (Auto) 1.46 0.11-0.59 K/uL Eosinophils # (Auto) 0.01 0-0.5 K/uL Basophils # (Auto) 0.01 0-0.2 K/uL RDW Standard Deviation 48.9 36.4-46.3 fL RDW Coefficient of Variation 14.5 11.5-14.5 % Immature Granulocyte % (Auto) 0.3 % Immature Granulocyte # (Auto) 0.04 0.00-0.02 K/uL Sodium Level 140 136-145 mmol/L Potassium Level 3.6 3.5-5.1 mmol/L Chloride Level 107 98-107 mmol/L Carbon Dioxide Level 22 21-32 mmol/L Anion Gap 11.0 3-11 mmol/L Blood Urea Nitrogen 18 7-18 mg/dl Creatinine 1.24 0.60-1.40 mg/dl Est Creatinine Clear Calc Drug Dose 57.3 ml/min Estimated GFR () 66.0 Estimated GFR (Non- 56.9 BUN/Creatinine Ratio 14.2 10-20 Random Glucose 92 70-99 mg/dl Calcium Level 8.0 8.5-10.1 mg/dl Magnesium Level 1.9 1.8-2.4 mg/dl Total Bilirubin 0.6 0.2-1 mg/dl Aspartate Amino Transf (AST/SGOT) 37 15-37 U/L Alanine Aminotransferase (ALT/SGPT) 29 12-78 U/L Alkaline Phosphatase 55 45-117 U/L Total Protein 6.5 6.4-8.2 gm/dl Albumin 3.1 3.4-5.0 gm/dl Globulin 3.4 2.5-4.0 gm/dl Albumin/Globulin Ratio 0.9 0.9-2 Assessment & Plan F/U S/P right himecolectomy, POD 1 stable, pt wants to remove the NG tube, the NG tube is removed, I instructed pt, pt may need re-insertion NG tube if he develops nausea, vomiting, could cause complication without NG tube, pt understood, I answered all questions, OOB base on high WBC [id number], and pt has sinus infection, start cipro + flagyl, continue treatment repeat labs in AM, will F/U 12/29/2017 doing better, passed gas and BM, D/C coutler, continue treatment, K-dur 20 MEQ po, repeat CBc in am, may start clear diet tomorrow, will F/u F/U S/P right himecolectomy, POD 1 stable, pt wants to remove the NG tube, the NG tube is removed, I instructed pt, pt may need re-insertion NG tube if he develops nausea, vomiting, could cause complication without NG tube, pt understood, I answered all questions, OOB base on high WBC [id number], and pt has sinus infection, start cipro + flagyl, continue treatment repeat labs in AM, will F/U
[2017-12-29] MEDS ORDERED: POTASSIUM CHLORIDE 10 MEQ TABCR PO STA (12:48)
[2017-12-29 14:58] VITALS: BP 161/88; PULSE 89; TEMP 36.6; O2SAT 96
--- NOTE | 2017-12-29 15:23 | Progress Note ---
Internal Med Progress Note Date of Service: Dec 29, 2017. Provider Documentation: SUBJECTIVE: THe patient was seen and examined Complains of abdominal pain and nausea Denies any CP.Palpitation or SOB NGT is out Clinically better today OBJECTIVE: Vital Signs-as noted below Exam: General-Minimal distress at rest OOB in a chair Eyes-normal ENT-normal Neck-supple Lungs-Clear to ausucltate bilaterally Heart-Regular,no murmur Abdomen-Distended,firm,tender ,bowel sound sluggish Extremities-Trace edema bilaterally Neuro-AAOx3 Lab data as noted below. ASSESSMENT & PLAN: S/P R Hemicolectomy for multiple adenomatous colon polyps Pt post op day# 2 Pt with NG tube in place and NPO at this time-NGT os out now Management as per Surgeon Pain management per general surgery Has been on Cipro and Flagyl -cipro discontinued DVT prophylaxis per surgery Monitor H&H for acute blood loss anemia Hb remains stable Clinically better Leukocytosis Was started on IV Cipro and Flagyl Doubt any infective process Cipro discontinued due to local reaction Will check CBC in AM and discontinue Flagyl after discussion with the Surgeon HYPONATREMIA Na 133 changed IVF to NSS + 20 Kcl ( increased K loss with NG suction /recent bowel resection ) follow PRP-better MODERATE LEFT CAROTID DISEASE Hx 50-60% narrowing on left ICA Was NPO currently, however suggest resuming ASA, simvastatin when able per surgery team HX ABDOMINAL ANEURYSM REPAIR F/U with vascular surgery and recent abd ct is stable No acute issue HX OF PVC's /PALPITATIONS Pt follows with cardiology, had pre-op clearance in 12/[address] Downing. Sinus rhythm on monitor today. Denies any palpitations, CP, or SOB currently Pt on metoprolol, however is NPO currently. Lopressor 2.5 mg IV Q 6hrs ordered Continue to monitor-no more PVCs No cardiac symptoms DYSLIPIDEMIA Hold simvastatin at this time with pt being NPO HTN Holding oral losartan and metoprolol as pt is NPO. Lopressor IV ordered Remains stable DVT Prophylaxis -per surgery team Disposition admitted tele Full Code as per discussion with pt Follows with Dr Torres for routine care Vital Signs: Date Time Temp Pulse Resp B/P (MAP) Pulse Ox O2 Delivery O2 Flow Rate FiO2 12/29/17 12:09 90 150/80 12/29/17 12:07 37.1 90 16 150/80 (103) 92 Room Air 12/29/17 08:00 Nasal Cannula 3.0 12/29/17 08:00 37.1 97 20 142/77 (98) 94 Nasal Cannula 3.0 12/29/17 06:38 99 150/90 12/29/17 04:00 Room Air 12/29/17 03:30 37.6 101 25 150/90 (110) 89 Room Air 12/29/17 00:00 Room Air 12/28/17 23:32 92 155/85 12/28/17 23:30 37.4 90 23 130/78 (95) 89 Room Air 12/28/17 20:00 37.2 98 26 155/85 (108) 92 Room Air 12/28/17 20:00 Nasal Cannula 2.0 12/28/17 17:29 97 154/80 12/28/17 16:00 Nasal Cannula 2.0 Lab Results: Results Past 24 Hours Test 12/28/17 19:00 12/29/17 00:00 12/29/17 06:39 12/29/17 07:42 Range/Units Bedside Glucose 96 98 95 70-99 mg/dl White Blood Count 13.26 4.8-10.8 K/uL Red Blood Count 4.53 4.7-6.1 M/uL Hemoglobin 14.3 14.0-18.0 g/dL Hematocrit 41.8 42-52 % Mean Corpuscular Volume 92.3 80-100 fL Mean Corpuscular Hemoglobin 31.6 25-34 pg Mean Corpuscular Hemoglobin Concent 34.2 32-36 g/dl Platelet Count 157 130-400 K/uL Mean Platelet Volume 8.6 7.4-10.4 fL Neutrophils (%) (Auto) 79.0 % Lymphocytes (%) (Auto) 9.5 % Monocytes (%) (Auto) 11.0 % Eosinophils (%) (Auto) 0.1 % Basophils (%) (Auto) 0.1 % Neutrophils # (Auto) 10.48 1.4-6.5 K/uL Lymphocytes # (Auto) 1.26 1.2-3.4 K/uL Monocytes # (Auto) 1.46 0.11-0.59 K/uL Eosinophils # (Auto) 0.01 0-0.5 K/uL Basophils # (Auto) 0.01 0-0.2 K/uL RDW Standard Deviation 48.9 36.4-46.3 fL RDW Coefficient of Variation 14.5 11.5-14.5 % Immature Granulocyte % (Auto) 0.3 % Immature Granulocyte # (Auto) 0.04 0.00-0.02 K/uL Sodium Level 140 136-145 mmol/L Potassium Level 3.6 3.5-5.1 mmol/L Chloride Level 107 98-107 mmol/L Carbon Dioxide Level 22 21-32 mmol/L Anion Gap 11.0 3-11 mmol/L Blood Urea Nitrogen 18 7-18 mg/dl Creatinine 1.24 0.60-1.40 mg/dl Est Creatinine Clear Calc Drug Dose 57.3 ml/min Estimated GFR () 66.0 Estimated GFR (Non- 56.9 BUN/Creatinine Ratio 14.2 10-20 Random Glucose 92 70-99 mg/dl Calcium Level 8.0 8.5-10.1 mg/dl Magnesium Level 1.9 1.8-2.4 mg/dl Total Bilirubin 0.6 0.2-1 mg/dl Aspartate Amino Transf (AST/SGOT) 37 15-37 U/L Alanine Aminotransferase (ALT/SGPT) 29 12-78 U/L Alkaline Phosphatase 55 45-117 U/L Total Protein 6.5 6.4-8.2 gm/dl Albumin 3.1 3.4-5.0 gm/dl Globulin 3.4 2.5-4.0 gm/dl Albumin/Globulin Ratio 0.9 0.9-2
[2017-12-29] MEDS ORDERED: NURSING VERBAL MED ORDER ONE (15:45)
[2017-12-29] MEDS: TAMSULOSIN HCL 0.4 MG CAP PO SCH (16:57)
[2017-12-29 19:19] VITALS: BP 155/85; PULSE 87; TEMP 37.1; O2SAT 95
[2017-12-29 23:33] VITALS: BP 155/79; PULSE 86; TEMP 37.3; O2SAT 94
[2017-12-30] MEDS: METRONIDAZOLE / NSS 500 MG in PREMIXED NSS 100 ML IV SCH ×3 (02:27→17:41)
[2017-12-30] MEDS: HYDROmorphone INJ 1 MG/ML SYR IV PRN (03:45)
[2017-12-30 04:12] VITALS: BP 159/84; PULSE 81; TEMP 37.1; O2SAT 95
[2017-12-30] MEDS: NSS + 20MEQ KCL 1000ML 1,000 ML IV SCH ×3 (05:47→20:44)
[2017-12-30] MEDS: METOPROLOL TARTRATE 1 MG/ML VIAL IV. SCH (05:48)
[2017-12-30 06:05] LABS: BASO % 0.3 %; BASO ABS # 0.03 K/uL (0-0.2); EOS % 1.1 %; EOS ABS # 0.11 K/uL (0-0.5); HEMATOCRIT 38.6 % (42-52); HEMOGLOBIN 13.1 g/dL (14.0-18.0); IG# 0.03 K/uL (0.00-0.02); LYMPH % 11.4 %; LYMPH ABS # 1.11 K/uL (1.2-3.4); MEAN CELL VOLUME 94.1 fL (80-100); MEAN CORPUSCULAR HGB CONC 33.9 g/dl (32-36); MEAN PLATELET VOLUME 8.6 fL (7.4-10.4); MONO % 10.1 %; MONO ABS # 0.98 K/uL (0.11-0.59); NEUT % 76.8 %; NEUT ABS # 7.48 K/uL (1.4-6.5); PLATELET COUNT 140 K/uL (130-400); RED CELL DISTRIBUTION WIDTH CV 14.9 % (11.5-14.5); RED CELL DISTRIBUTION WIDTH SD 50.8 fL (36.4-46.3); WHITE BLOOD COUNT 9.74 K/uL (4.8-10.8)
[2017-12-30 06:24] LABS: CALCIUM 8.2 mg/dl (8.5-10.1); CREATININE 1.06 mg/dl (0.60-1.40); POTASSIUM 3.9 mmol/L (3.5-5.1)
[2017-12-30 07:12] VITALS: BP 156/81; PULSE 85; TEMP 37.1; O2SAT 96
--- NOTE | 2017-12-30 07:52 | Surgery Progress Note ---
Surgery Progress Note Date of Service Dec 30, 2017. Subjective Post OP Day: 3 + feeling well doing fine, no abdominal pain, passed gas and BM this morning, pt wakes on hallway. Objective Vital Signs: Date Time Temp Pulse Resp B/P (MAP) Pulse Ox O2 Delivery O2 Flow Rate FiO2 12/30/17 07:12 37.1 85 18 156/81 (106) 96 Room Air 12/30/17 05:48 81 159/84 12/30/17 04:22 Room Air Nasal Cannula 12/30/17 04:12 37.1 81 18 159/84 (109) 95 12/30/17 00:00 Room Air 2.0 Nasal Cannula 12/29/17 23:34 86 155/79 12/29/17 23:33 37.3 86 23 155/79 (104) 94 Room Air 12/29/17 20:00 Nasal Cannula 2.0 12/29/17 19:19 37.1 87 26 155/85 (108) 95 Room Air 12/29/17 18:07 89 161/88 12/29/17 16:00 Nasal Cannula 2.0 12/29/17 14:58 36.6 89 24 161/88 (112) 96 Nasal Cannula 3.0 12/29/17 12:09 90 150/80 12/29/17 12:07 37.1 90 16 150/80 (103) 92 Room Air 12/29/17 12:00 Room Air 12/29/17 08:00 Nasal Cannula 3.0 12/29/17 08:00 37.1 97 20 142/77 (98) 94 Nasal Cannula 3.0 General Appearance: WD/WN, no apparent distress Head: normocephalic Neck: supple, no JVD Respiratory/Chest: chest non-tender, lungs clear Cardiovascular: regular rate, rhythm, no edema, no gallop, no JVD Abdomen: normal bowel sounds, non tender, non distended, soft Incision(s): clean, dry, intact Extremities: normal range of motion, non-tender, normal inspection Laboratory Results: Results Past 24 Hours Test 12/29/17 18:40 12/30/17 05:33 Range/Units Bedside Glucose 76 70-99 mg/dl White Blood Count 9.74 4.8-10.8 K/uL Red Blood Count 4.10 4.7-6.1 M/uL Hemoglobin 13.1 14.0-18.0 g/dL Hematocrit 38.6 42-52 % Mean Corpuscular Volume 94.1 80-100 fL Mean Corpuscular Hemoglobin 32.0 25-34 pg Mean Corpuscular Hemoglobin Concent 33.9 32-36 g/dl Platelet Count 140 130-400 K/uL Mean Platelet Volume 8.6 7.4-10.4 fL Neutrophils (%) (Auto) 76.8 % Lymphocytes (%) (Auto) 11.4 % Monocytes (%) (Auto) 10.1 % Eosinophils (%) (Auto) 1.1 % Basophils (%) (Auto) 0.3 % Neutrophils # (Auto) 7.48 1.4-6.5 K/uL Lymphocytes # (Auto) 1.11 1.2-3.4 K/uL Monocytes # (Auto) 0.98 0.11-0.59 K/uL Eosinophils # (Auto) 0.11 0-0.5 K/uL Basophils # (Auto) 0.03 0-0.2 K/uL RDW Standard Deviation 50.8 36.4-46.3 fL RDW Coefficient of Variation 14.9 11.5-14.5 % Immature Granulocyte % (Auto) 0.3 % Immature Granulocyte # (Auto) 0.03 0.00-0.02 K/uL Sodium Level 140 136-145 mmol/L Potassium Level 3.9 3.5-5.1 mmol/L Chloride Level 109 98-107 mmol/L Carbon Dioxide Level 24 21-32 mmol/L Anion Gap 7.0 3-11 mmol/L Blood Urea Nitrogen 17 7-18 mg/dl Creatinine 1.06 0.60-1.40 mg/dl Est Creatinine Clear Calc Drug Dose 67.1 ml/min Estimated GFR () 79.7 Estimated GFR (Non- 68.8 BUN/Creatinine Ratio 16.3 10-20 Random Glucose 80 70-99 mg/dl Calcium Level 8.2 8.5-10.1 mg/dl Magnesium Level 2.1 1.8-2.4 mg/dl Assessment & Plan F/U S/P right himecolectomy, POD 1 stable, pt wants to remove the NG tube, the NG tube is removed, I instructed pt, pt may need re-insertion NG tube if he develops nausea, vomiting, could cause complication without NG tube, pt understood, I answered all questions, OOB base on high WBC [id number], and pt has sinus infection, start cipro + flagyl, continue treatment repeat labs in AM, will F/U 12/29/2017 doing better, passed gas and BM, D/C coulter, continue treatment, K-dur 20 MEQ po, repeat CBc in am, may start clear diet tomorrow, will F/u 12/30/2017 clear diet may D/C home tomorrow if pt is tolerated clear diet, the post-op care instruction was given. clear liquids F/U S/P right himecolectomy, POD 1 stable, pt wants to remove the NG tube, the NG tube is removed, I instructed pt, pt may need re-insertion NG tube if he develops nausea, vomiting, could cause complication without NG tube, pt understood, I answered all questions, OOB base on high WBC [id number], and pt has sinus infection, start cipro + flagyl, continue treatment repeat labs in AM, will F/U 12/29/2017 doing better, passed gas and BM, D/C coulter, continue treatment, K-dur 20 MEQ po, repeat CBc in am, may start clear diet tomorrow, will F/u
[2017-12-30] MEDS ORDERED: OXYC-57 PO (08:03)
--- NOTE | 2017-12-30 08:10 | Discharge Instructions ---
Discharge Instructions Date of Service Dec 30, 2017. Admission Reason for Admission: History of Colonic Polyps Discharge Discharge Diagnosis / Problem: same Discharge Goals Goal(s): Decrease discomfort, Improve function Activity Recommendations Activity Limitations: as noted below No heavy lifting over 10 pounds for 6 weeks No strenuous activity until cleared by surgeon No submerging incision underwater for 2 weeks or until incision is healed (no bathing, swimming, or hot tubs) No driving while taking narcotic pain medication or until you are pain free . Instructions / Follow-Up Instructions / Follow-Up You may shower when you get home. Gently clean incision with soap and water. Keep covered with gauze bandage. The carlos manuel will be removed in the office they should be removed 10-14 days after your surgery Walking and light activity is encouraged to prevent blood clots from forming in your legs You will be given prescription for narcotic pain medication for moderate to severe pain. This medication may make you drowsy. You may take extra strength Ibuprofen/Tylenol as needed for mild pain. Follow-up in surgical office in 1-2 weeks as scheduled for staple removal and post operative follow-up. Please call office at [phone] if you do not already have an appointment set up. Current Hospital Diet Patient's current hospital diet: Clear Liquid Diet Discharge Diet Recommended Diet: Regular Diet, Low Fiber Diet Procedures Procedures Performed: Right Hemicolectomy Pending Studies Studies pending at discharge: no Medical Emergencies . Who to Call and When: Medical Emergencies: If at any time you feel your situation is an emergency, please call 911 immediately. . Non-Emergent Contact Non-Emergency issues call your: Primary Care Provider, Surgeon Call Non-Emergent contact if: you have a fever, temperature is above 101, your pain is not controlled, your pain is worsening, your pain is unusual for you, wound has increased drainage, wound has increased redness, wound has increased pain . "Provider Documentation" section prepared by Manda Diana. . VTE Core Measure Inpt VTE Proph given/why not?: SCD's [place] Drug Monitoring Program Search Results: patient reviewed within database, no issues identified
[2017-12-30] MEDS ORDERED: METOPROLOL SUCC 25MG EXT REL TAB PO ONE (09:33)
[2017-12-30 11:57] VITALS: BP 187/94; PULSE 87; TEMP 36.6; O2SAT 95
[2017-12-30] MEDS: OXYCODONE/ACETAMINOPHEN 5-325 TAB PO PRN ×2 (12:45→20:44)
[2017-12-30] MEDS: ONDANSETRON INJ 2 MG/ML 2 ML VIAL IV PRN (12:46)
--- NOTE | 2017-12-30 15:12 | Progress Note ---
Internal Med Progress Note Date of Service: Dec 30, 2017. Provider Documentation: SUBJECTIVE: THe patient was seen and examined Complains of abdominal pain and nausea Denies any CP.Palpitation or SOB NGT is out Clinically better today Tolerating clears and will advance as tolerated OBJECTIVE: Vital Signs-as noted below Exam: General-Minimal distress at rest OOB in a chair Eyes-normal ENT-normal Neck-supple Lungs-Clear to ausucltate bilaterally Heart-Regular,no murmur Abdomen-Distended,firm,tender ,bowel sound sluggish Extremities-Trace edema bilaterally Neuro-AAOx3 Lab data as noted below. ASSESSMENT & PLAN: S/P R Hemicolectomy for multiple adenomatous colon polyps Pt post op day# 3 Pt with NG tube in place and NPO at this time-NGT os out now Management as per Surgeon Pain management per general surgery Has been on Cipro and Flagyl -cipro discontinued DVT prophylaxis per surgery Monitor H&H for acute blood loss anemia Hb remains stable Clinically much better Clears started and advance as tolerated Leukocytosis Was started on IV Cipro and Flagyl Doubt any infective process Cipro discontinued due to local reaction Will check CBC in AM and discontinue Flagyl after discussion with the Surgeon Resolved and d/c antibiotic tomorrow HYPONATREMIA Na 133 changed IVF to NSS + 20 Kcl ( increased K loss with NG suction /recent bowel resection ) Normalized MODERATE LEFT CAROTID DISEASE Hx 50-60% narrowing on left ICA Was NPO currently, however suggest resuming ASA, simvastatin when able per surgery team HX ABDOMINAL ANEURYSM REPAIR F/U with vascular surgery and recent abd ct is stable No acute issue HX OF PVC's /PALPITATIONS Pt follows with cardiology, had pre-op clearance in 12/[address] Downing. Sinus rhythm on monitor today. Denies any palpitations, CP, or SOB currently Pt on metoprolol, however is NPO currently. Lopressor 2.5 mg IV Q 6hrs ordered Continue to monitor-no more PVCs No cardiac symptoms DYSLIPIDEMIA Hold simvastatin at this time with pt being NPO HTN Holding oral losartan and metoprolol as pt is NPO. Lopressor IV ordered Remains stable DVT Prophylaxis -per surgery team Disposition admitted tele Full Code as per discussion with pt Follows with Dr Torres for routine care Vital Signs: Date Time Temp Pulse Resp B/P (MAP) Pulse Ox O2 Delivery O2 Flow Rate FiO2 12/30/17 12:00 Room Air 12/30/17 11:57 36.6 87 20 187/94 (125) 95 Room Air 12/30/17 08:00 Room Air 12/30/17 07:12 37.1 85 18 156/81 (106) 96 Room Air 12/30/17 05:48 81 159/84 12/30/17 04:22 Room Air Nasal Cannula 12/30/17 04:12 37.1 81 18 159/84 (109) 95 12/30/17 00:00 Room Air 2.0 Nasal Cannula 12/29/17 23:34 86 155/79 12/29/17 23:33 37.3 86 23 155/79 (104) 94 Room Air 12/29/17 20:00 Nasal Cannula 2.0 12/29/17 19:19 37.1 87 26 155/85 (108) 95 Room Air 12/29/17 18:07 89 161/88 12/29/17 16:00 Nasal Cannula 2.0 Lab Results: Results Past 24 Hours Test 12/29/17 18:40 12/30/17 05:33 Range/Units Bedside Glucose 76 70-99 mg/dl White Blood Count 9.74 4.8-10.8 K/uL Red Blood Count 4.10 4.7-6.1 M/uL Hemoglobin 13.1 14.0-18.0 g/dL Hematocrit 38.6 42-52 % Mean Corpuscular Volume 94.1 80-100 fL Mean Corpuscular Hemoglobin 32.0 25-34 pg Mean Corpuscular Hemoglobin Concent 33.9 32-36 g/dl Platelet Count 140 130-400 K/uL Mean Platelet Volume 8.6 7.4-10.4 fL Neutrophils (%) (Auto) 76.8 % Lymphocytes (%) (Auto) 11.4 % Monocytes (%) (Auto) 10.1 % Eosinophils (%) (Auto) 1.1 % Basophils (%) (Auto) 0.3 % Neutrophils # (Auto) 7.48 1.4-6.5 K/uL Lymphocytes # (Auto) 1.11 1.2-3.4 K/uL Monocytes # (Auto) 0.98 0.11-0.59 K/uL Eosinophils # (Auto) 0.11 0-0.5 K/uL Basophils # (Auto) 0.03 0-0.2 K/uL RDW Standard Deviation 50.8 36.4-46.3 fL RDW Coefficient of Variation 14.9 11.5-14.5 % Immature Granulocyte % (Auto) 0.3 % Immature Granulocyte # (Auto) 0.03 0.00-0.02 K/uL Sodium Level 140 136-145 mmol/L Potassium Level 3.9 3.5-5.1 mmol/L Chloride Level 109 98-107 mmol/L Carbon Dioxide Level 24 21-32 mmol/L Anion Gap 7.0 3-11 mmol/L Blood Urea Nitrogen 17 7-18 mg/dl Creatinine 1.06 0.60-1.40 mg/dl Est Creatinine Clear Calc Drug Dose 67.1 ml/min Estimated GFR () 79.7 Estimated GFR (Non- 68.8 BUN/Creatinine Ratio 16.3 10-20 Random Glucose 80 70-99 mg/dl Calcium Level 8.2 8.5-10.1 mg/dl Magnesium Level 2.1 1.8-2.4 mg/dl
[2017-12-30 15:43] VITALS: BP 157/75; PULSE 76; TEMP 36.5; O2SAT 93
[2017-12-30 19:19] VITALS: BP 171/83; PULSE 83; TEMP 37.1; O2SAT 94
[2017-12-30] MEDS: TAMSULOSIN HCL 0.4 MG CAP PO SCH (20:44)
[2017-12-30 23:38] VITALS: BP 149/81; PULSE 69; TEMP 37.1; O2SAT 93
[2017-12-31] MEDS: METRONIDAZOLE / NSS 500 MG in PREMIXED NSS 100 ML IV SCH ×2 (01:26→10:00)
[2017-12-31 04:23] VITALS: BP 157/82; PULSE 74; TEMP 37; O2SAT 91
[2017-12-31] MEDS: NSS + 20MEQ KCL 1000ML 1,000 ML IV SCH (05:30)
[2017-12-31 06:37] LABS: CALCIUM 8.1 mg/dl (8.5-10.1); CREATININE 1.01 mg/dl (0.60-1.40); POTASSIUM 3.5 mmol/L (3.5-5.1)
[2017-12-31 08:00] VITALS: BP 153/78; PULSE 92; TEMP 36.8; O2SAT 97
[2017-12-31] MEDS: OXYCODONE/ACETAMINOPHEN 5-325 TAB PO PRN (08:31)
[2017-12-31] MEDS ORDERED: METOPROLOL SUCC 25MG EXT REL TAB PO SCH (09:00)
[2017-12-31] MEDS ORDERED: LOSARTAN POTASSIUM 25 MG TAB PO SCH (09:00)
--- NOTE | 2017-12-31 09:22 | Surgery Progress Note ---
Surgery Progress Note Date of Service Dec 31, 2017. Subjective + feeling well, + ambulating, + bowel movement, + pain controlled, + diet, No nausea, No vomiting Objective Vital Signs: Date Time Temp Pulse Resp B/P (MAP) Pulse Ox O2 Delivery O2 Flow Rate FiO2 12/31/17 04:23 37.0 74 18 157/82 (107) 91 Room Air 12/31/17 04:05 Room Air Nasal Cannula 12/31/17 00:12 Room Air Nasal Cannula 12/30/17 23:38 37.1 69 18 149/81 (103) 93 Room Air 12/30/17 20:09 Room Air Nasal Cannula 12/30/17 19:19 37.1 83 20 171/83 (112) 94 Room Air 12/30/17 16:00 Room Air 12/30/17 15:43 36.5 76 19 157/75 (102) 93 Room Air 12/30/17 12:00 Room Air 12/30/17 11:57 36.6 87 20 187/94 (125) 95 Room Air General Appearance: WD/WN, no apparent distress Head: normocephalic, atraumatic Respiratory/Chest: lungs clear, normal breath sounds, no respiratory distress Cardiovascular: regular rate, rhythm Abdomen: normal bowel sounds, non tender, soft, + distended (mild) Incision(s): clean, dry, intact (binder in place, dressing changed) Extremities: no pedal edema Laboratory Results: Results Past 24 Hours Test 12/31/17 05:36 Range/Units Sodium Level 141 136-145 mmol/L Potassium Level 3.5 3.5-5.1 mmol/L Chloride Level 110 98-107 mmol/L Carbon Dioxide Level 27 21-32 mmol/L Anion Gap 4.0 3-11 mmol/L Blood Urea Nitrogen 12 7-18 mg/dl Creatinine 1.01 0.60-1.40 mg/dl Est Creatinine Clear Calc Drug Dose 70.4 ml/min Estimated GFR () 84.5 Estimated GFR (Non- 72.9 BUN/Creatinine Ratio 12.2 10-20 Random Glucose 91 70-99 mg/dl Calcium Level 8.1 8.5-10.1 mg/dl Magnesium Level 1.8 1.8-2.4 mg/dl Assessment & Plan POD#3 right colectomy. Tolerating full liquids, on PO pain medications. Will advance diet and discharge home if tolerates. postop instructions reviewed with pt and .
[2017-12-31 11:39] VITALS: BP 130/79; PULSE 70; TEMP 37.1; O2SAT 94
[2017-12-31 11:56] VITALS: BP 153/78; PULSE 92; TEMP 36.8; O2SAT 97
--- NOTE | 2017-12-31 15:42 | Progress Note ---
Internal Med Progress Note Date of Service: Dec 31, 2017. Provider Documentation: SUBJECTIVE: The patient was seen and examined Complains of abdominal pain and nausea Denies any CP.Palpitation or SOB Tolatrating regular diet and ready to be discharged OBJECTIVE: Vital Signs-as noted below Exam: General-Minimal distress at rest OOB in a chair Eyes-normal ENT-normal Neck-supple Lungs-Clear to ausucltate bilaterally Heart-Regular,no murmur Abdomen-Distended,firm,tender ,bowel sound sluggish Extremities-Trace edema bilaterally-off Diuretic Neuro-AAOx3 Lab data as noted below. ASSESSMENT & PLAN: S/P R Hemicolectomy for multiple adenomatous colon polyps Pt post op day# 4 Pt with NG tube in place and NPO at this time-NGT os out now Management as per Surgeon Pain management per general surgery Has been on Cipro and Flagyl -cipro discontinued DVT prophylaxis per surgery Monitor H&H for acute blood loss anemia Hb remains stable Clinically much better Tolerated advanced diet Primary service is discharging him today Leukocytosis Was started on IV Cipro and Flagyl Doubt any infective process Cipro discontinued due to local reaction Will check CBC in AM and discontinue Flagyl after discussion with the Surgeon Resolved and d/c antibiotic tomorrow No need for any mot-re antibiotic HYPONATREMIA Na 133 changed IVF to NSS + 20 Kcl ( increased K loss with NG suction /recent bowel resection ) Normalized MODERATE LEFT CAROTID DISEASE Hx 50-60% narrowing on left ICA Was NPO currently, however suggest resuming ASA, simvastatin when able per surgery team No acute symptoms HX ABDOMINAL ANEURYSM REPAIR F/U with vascular surgery and recent abd ct is stable No acute issue HX OF PVC's /PALPITATIONS Pt follows with cardiology, had pre-op clearance in 12/[address] Downing. Sinus rhythm on monitor today. Denies any palpitations, CP, or SOB currently Pt on metoprolol, however is NPO currently. Lopressor 2.5 mg IV Q 6hrs ordered Continue to monitor-no more PVCs No cardiac symptoms Cardiac medications started DYSLIPIDEMIA Hold simvastatin at this time with pt being NPO HTN Holding oral losartan and metoprolol as pt is NPO. Lopressor IV ordered Remains stable DVT Prophylaxis -per surgery team Disposition admitted tele Full Code as per discussion with pt Follows with Dr Torres for routine care Medically stable to be discharged Vital Signs: Date Time Temp Pulse Resp B/P (MAP) Pulse Ox O2 Delivery O2 Flow Rate FiO2 12/31/17 11:56 36.8 92 18 97 Room Air 12/31/17 11:39 37.1 70 16 130/79 (96) 94 Room Air 12/31/17 08:00 Nasal Cannula 2.0 12/31/17 08:00 36.8 92 18 153/78 (103) 97 Room Air 12/31/17 04:23 37.0 74 18 157/82 (107) 91 Room Air 12/31/17 04:05 Room Air Nasal Cannula 12/31/17 00:12 Room Air Nasal Cannula 12/30/17 23:38 37.1 69 18 149/81 (103) 93 Room Air 12/30/17 20:09 Room Air Nasal Cannula 12/30/17 19:19 37.1 83 20 171/83 (112) 94 Room Air 12/30/17 16:00 Room Air 12/30/17 15:43 36.5 76 19 157/75 (102) 93 Room Air Lab Results: Results Past 24 Hours Test 12/31/17 05:36 Range/Units Sodium Level 141 136-145 mmol/L Potassium Level 3.5 3.5-5.1 mmol/L Chloride Level 110 98-107 mmol/L Carbon Dioxide Level 27 21-32 mmol/L Anion Gap 4.0 3-11 mmol/L Blood Urea Nitrogen 12 7-18 mg/dl Creatinine 1.01 0.60-1.40 mg/dl Est Creatinine Clear Calc Drug Dose 70.4 ml/min Estimated GFR () 84.5 Estimated GFR (Non- 72.9 BUN/Creatinine Ratio 12.2 10-20 Random Glucose 91 70-99 mg/dl Calcium Level 8.1 8.5-10.1 mg/dl Magnesium Level 1.8 1.8-2.4 mg/dl
== END 2017-12-31 13:10 | disposition home or self-care (01) | DRG 330 ==
LOC: C.ACU 04:51 → C.2T 11:14 → ENRESERV 11:45 → C.2T 12-30 03:02
PROVIDERS: ADMIT Surgery; ATTEND Surgery
PROC: 0DTK0ZZ Resection of Ascending Colon, Open Approach (ICD-10-PCS; principal; 2017-12-27 07:00)
DX: D12.6 Benign neoplasm of colon, unspecified (principal); E87.1 Hypo-osmolality and hyponatremia; N17.9 Acute kidney failure, unspecified; I12.9 Hypertensive chronic kidney disease with stage 1 through stage 4 chronic kidney disease, or unspecified chronic kidney disease; I25.10 Atherosclerotic heart disease of native coronary artery without angina pectoris; N18.3 Chronic kidney disease, stage 3 (moderate); I49.3 Ventricular premature depolarization; Z79.82 Long term (current) use of aspirin; Z79.899 Other long term (current) drug therapy

== ENCOUNTER 2018-03-24 13:52 | Observation (INO) | payer OTHER ==
[~2018-03-24] VITALS: Ht 172.7 cm; Wt 90.5 kg
[~2018-03-24 13:52] MED LIST changes: -ALKA SELZER PO; -GUAI1TAB69 PO; +OXYC-57 PO
[2018-03-24] MEDS ORDERED: SODIUM CHLORIDE 0.9% 500ML 500 ML IV STA (14:27)
[2018-03-24 14:44] LABS: BASO % 0.3 %; BASO ABS # 0.02 K/uL (0-0.2); EOS % 1.3 %; HEMATOCRIT 42.6 % (42-52); HEMOGLOBIN 14.9 g/dL (14.0-18.0); IG# 0.01 K/uL (0.00-0.02); LYMPH % 31.8 %; LYMPH ABS # 2.46 K/uL (1.2-3.4); MEAN CELL VOLUME 90.3 fL (80-100); MEAN CORPUSCULAR HEMOGLOBIN 31.6 pg (25-34); MEAN PLATELET VOLUME 8.5 fL (7.4-10.4); MONO % 13.7 %; MONO ABS # 1.06 K/uL (0.11-0.59); NEUT % 52.8 %; NEUT ABS # 4.09 K/uL (1.4-6.5); PLATELET COUNT 185 K/uL (130-400); RED CELL DISTRIBUTION WIDTH CV 13.8 % (11.5-14.5); RED CELL DISTRIBUTION WIDTH SD 45.6 fL (36.4-46.3); WHITE BLOOD COUNT 7.74 K/uL (4.8-10.8)
[2018-03-24] MEDS ORDERED: OPTIRAY 320 IV PRN (14:45)
--- NOTE | 2018-03-24 14:50 | DIAGNOSTIC IMAGING REPORT ---
CHEST ONE VIEW PORTABLE CLINICAL HISTORY: Chest pain. COMPARISON STUDY: Chest radiograph February 23, 2013. FINDINGS: Lung volumes are normal. Minimal linear left basilar opacity is suggestive of atelectasis or scarring. There is no consolidation to suggest pneumonia. Pulmonary vascularity is normal. The appearance of the chest is unchanged. IMPRESSION: No acute cardiopulmonary findings. Electronically signed by: Stuart Mcbride M.D. 03/24/2018 2:49 PM Dictated Date/Time: 03/24/2018 2:48 PM
[2018-03-24 14:52] LABS: ALBUMIN 3.7 gm/dl (3.4-5.0); ALT/SGPT 24 U/L (12-78); AST/SGOT 20 U/L (15-37); BLOOD UREA NITROGEN 17 mg/dl (7-18); CALCIUM 8.9 mg/dl (8.5-10.1); CARBON DIOXIDE 32 mmol/L (21-32); CREATININE 1.36 mg/dl (0.60-1.40); GLUCOSE 74 mg/dl (70-99); LIPASE 198 U/L (73-393); POTASSIUM 3.7 mmol/L (3.5-5.1); SODIUM 138 mmol/L (136-145)
[2018-03-24 14:57] LABS: ALKALINE PHOSPHATASE 75 U/L (45-117); TOTAL PROTEIN 7.1 gm/dl (6.4-8.2)
--- NOTE | 2018-03-24 15:54 | DIAGNOSTIC IMAGING REPORT ---
CHEST COMBO ANGIO DISSECTION CLINICAL HISTORY: 73 years-old Male presenting with ^h/o AAA, cp, sob, dizziness. TECHNIQUE: Multidetector CT angiography of the chest was performed before and after the administration of intravenous contrast. 3-D volumetric and/or maximum intensity projection (MIP) images were subsequently reconstructed for review. IV contrast: 119 mL of Optiray 320. A dose lowering technique was used consistent with the principles of ALARA (as low as reasonably achievable). COMPARISON: None. CT DOSE (mGy.cm): The estimated cumulative dose is 1744.30. FINDINGS: [employer] Technician topogram: Unremarkable. Vasculature: The study is adequate for assessment of the aorta. Precontrast imaging demonstrates no evidence of intramural hematoma. Atherosclerosis of the aorta with extensive calcified and noncalcified plaque primarily along the descending thoracic aorta. Origins of the major branch vessels remain patent. There is also a focal ulceration of mural thrombus anteriorly along the proximal portion of the descending thoracic aorta measuring 8 mm in width (series 7 image 127). This does not extend beyond the expected contour of the aorta to suggest a penetrating ulcer partially visualized endograft stent within the abdominal aorta. No evidence of dissection or aneurysm. Allowing for timing of the contrast bolus, no gross evidence of a filling defect within the pulmonary arteries to suggest embolus. Main pulmonary artery is not enlarged. No flattening of the interventricular septum. No intracardiac filling defect. No reflux of contrast into the hepatic veins. Remaining chest: On soft tissue windows, normal thyroid and thoracic inlet. No axillary, supraclavicular, hilar, or mediastinal lymphadenopathy. Normal heart size. Coronary artery calcification. No pericardial or pleural effusion. Cholecystectomy clips. Accessory left hepatic artery arising from the left gastric artery. Partially visualized aortic endograft stent. On lung windows, apical predominant mild to moderate emphysema, which is both centrilobular and paraseptal. No focal nodule or infiltrate. Minimal dependent groundglass likely atelectasis. Airways patent. On bone windows, degenerative changes of the spine. Calcification noted in the rotator cuff myotendinous junction on the left likely indicating degenerative change or prior injury. IMPRESSION: 1. Extensive atherosclerotic disease in the thoracic aorta without evidence of aneurysm, dissection, or penetrating ulcer. No acute aortic injury. Mural plaque ulceration noted. 2. Emphysema. 3. No acute intrathoracic pathology. Electronically signed by: Carlin Hopson M.D. 03/24/2018 3:53 PM Dictated Date/Time: 03/24/2018 3:45 PM
[2018-03-24 15:58] LABS: INFLUENZA A PCR Neg for Influ A (NEG); INFLUENZA B PCR Neg for Influ B (NEG)
--- NOTE | 2018-03-24 16:00 | DIAGNOSTIC IMAGING REPORT ---
CT ANGIOGRAPHY OF THE ABDOMEN AND PELVIS WITH CONTRAST CLINICAL HISTORY: Shortness of breath, chest pain and dizziness. History of abdominal aortic aneurysm. COMPARISON STUDY: CT of the abdomen and pelvis July 29, 2016. TECHNIQUE: Axial images of the abdomen and pelvis were obtained during arterial phase following intravenous injection of 119 cc Optiray 320 IV. Sagittal and coronal reconstructions were viewed as well as maximal intensity projections on an independent 3-D workstation. FINDINGS: Please note that the CTA of the chest will be reported separately. Arterial phase images of the liver, spleen, adrenal glands and pancreas are unremarkable as is the left kidney. Marked right renal atrophy is noted. There is a cyst within lower pole of the right kidney. There are postsurgical findings consistent with a right hemicolectomy. There is no evidence for a bowel obstruction. There is extensive colonic diverticulosis without evidence for acute diverticulitis. There is no evidence for a obstruction. No ascites is present. Fat-containing bilateral inguinal hernias, left larger than right, are noted. Note is made of a bifurcated aortoiliac stent graft within an infrarenal abdominal aortic aneurysm which is unchanged in appearance since prior CT. There is no evidence for an endoleak on this arterial phase exam. The aneurysm sac measures 3.6 cm in caliber. There is no evidence for rupture. 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 Note is made of 3 right renal arteries and 2 left renal arteries. The small size of the renal arteries make evaluation for stenosis difficult. No suspicious osseous lesion is present. IMPRESSION: 1. No acute process within the abdomen or pelvis. 2. Status post placement of bifurcated aortoiliac stent graft. No change in appearance since prior CT. No rupture. No endoleak on arterial phase exam. No abdominal aortic dissection. 3. Status post right hemicolectomy. No bowel obstruction. No lymphadenopathy. 4. Extensive colonic diverticulosis without evidence for acute diverticulitis. Electronically signed by: Stuart Mcbride M.D. 03/24/2018 3:58 PM Dictated Date/Time: 03/24/2018 3:47 PM
[2018-03-24] MEDS ORDERED: ASPIRIN 81 MG CHEW PO STA (16:40)
--- NOTE | 2018-03-24 16:40 | EMERGENCY ROOM VISIT NOTE ---
History Report prepared by Michelle: Valarie Whitman Under the Supervision of: Dr. Chinmay Barreto M.D. First contact with patient: 14:24 Chief Complaint: REFERRED BY DOCTOR Stated Complaint: GENERALLY NOT FEELING RIGHT - SENT BY History of Present Illness The patient is a 73 year old male who presents to the Emergency Room with complaints of intermittent mid chest discomfort starting 2 weeks ago. He has a history of acid reflux, but states that this discomfort feels different. He has been having spells of this chest discomfort with SOB, lightheadedness, and nausea. He has had some episodes today. These episodes are not related to exertion and resolve on their own. He was seen by his PCP and sent to the ED over cardiac concerns. He has had been coughing up clear mucous. He has rhinorrhea. He feels his symptoms are similar to the flu. He had some body aches last week. He currently just has some sinus pressure. He has been taking laxatives and had some diarrhea since having colon surgery 6 weeks ago. The surgery was for recurring polyps. He quit smoking around 20 years ago. He has a history of aortic aneurysm and brain aneurysm. The brain aneurysm was clipped in 1986. He has an aortic stent. He denies having any tearing pain. He denies any history of [place]. He had a stress test 1.5 years ago. He does not have any inhalers at home. Source of History: patient Onset: 2 weeks ago Position: chest Quality: other (discomfort) Timing: intermittent Associated Symptoms: + cough, + SOB, + nausea Note: Pt reports dizziness, rhinorrhea, sinus pressure. Review of Systems See HPI for pertinent positives and negatives. A total of ten systems were reviewed and were otherwise negative. Past Medical & Surgical Medical Problems: (1) Abdominal aortic aneurysm (2) Adenomatous polyps (3) Aneurysm (4) Benign hypertension (5) Carotid artery stenosis (6) Chest pain (7) Chronic obstructive lung disease (8) CKD (chronic kidney disease), stage III (9) Cough (10) Diverticular disease of colon (11) Dyslipidemia (12) Elevated D-dimer (13) Finger laceration involving tendon (14) Gastroesophageal reflux disease (15) GERD (gastroesophageal reflux disease) (16) Headache (17) NO MRI SCANS (18) Spontaneous pneumothorax Surgical Problems: (1) Back surgery (2) Cholecystectomy (3) Hernia repair (4) History of abdominal aortic aneurysm repair (5) Repair cerebral aneurysm (6) S/P right colectomy Family History Diabetes mellitus Hypertension Social History Smoking Status: Never Smoker Alcohol Use: none Drug Use: none Marital Status: Housing Status: lives with significant other Occupation Status: employed Current/Historical Medications Scheduled Aspirin (Aspir-81), 81 MG PO DAILY Chlorthalidone (Hygroton), 12.5 MG PO QAM Losartan Potassium (Cozaar), 25 MG PO QAM Metoprolol Succ (Toprol Xl) (Toprol-Xl), 25 MG PO QAM Multivitamin (Multivitamin), 1 TAB PO QAM Niacin (Niaspan Ext Rel), 500 MG PO HS Omeprazole (Prilosec), 20 MG PO QAM Simvastatin (Zocor), 40 MG PO HS Tamsulosin HCl (Tamsulosin HCl), 0.4 MG PO HS Allergies Coded Allergies: Heparin (Verified Allergy, Severe, Do not give the patient IV heparin or SubQ heparin, 03/24/18) FOR [id number] ADMISSION Ciprofloxacin (Verified Allergy, Intermediate, RASH, 12/28/17) red streaking proximal to IV infusion site/pruritus Hydralazine (Verified Adverse Reaction, Intermediate, DELIRIUM, 03/24/18) ALEXIA Inhibitors (Verified Adverse Reaction, Unknown, COUGH, 03/24/18) Salicylates (Verified Adverse Reaction, Unknown, STOMACH IRRITATION, ) Physical Exam Vital Signs Date Time Temp Pulse Resp B/P (MAP) Pulse Ox O2 Delivery O2 Flow Rate FiO2 03/24/18 15:50 79 17 140/86 95 Room Air 03/24/18 14:51 93 Room Air 03/24/18 14:15 73 03/24/18 13:56 36.6 74 18 126/79 93 Room Air Physical Exam GENERAL: Awake, alert, well-appearing, in no distress HENT: Normocephalic, atraumatic. Dry mucous membranes, otherwise oropharynx unremarkable. EYES: Normal conjunctiva. Sclera non-icteric. NECK: Supple. No nuchal rigidity. FROM. No JVD. RESPIRATORY: Clear to auscultation. CARDIAC: Regular rate, normal rhythm. Extremities warm and well perfused. Pulses equal. ABDOMEN: Soft, non-distended. No tenderness to palpation. No rebound or guarding. No masses. RECTAL: Deferred. MUSCULOSKELETAL: Chest examination reveals no tenderness. The back is symmetrical on inspection without obvious abnormality. There is no CVA tenderness to palpation. No joint edema. LOWER EXTREMITIES: Calves are equal size bilaterally and non-tender. No edema. No discoloration. NEURO: Normal sensorium. No sensory or motor deficits noted. SKIN: No rash or jaundice noted. Medical Decision & Procedures ER Provider Diagnostic Interpretation: Radiology results as stated below per my review and radiologist interpretation: CHEST ONE VIEW PORTABLE CLINICAL HISTORY: Chest pain. COMPARISON STUDY: Chest radiograph February 23, 2013. FINDINGS: Lung volumes are normal. Minimal linear left basilar opacity is suggestive of atelectasis or scarring. There is no consolidation to suggest pneumonia. Pulmonary vascularity is normal. The appearance of the chest is unchanged. IMPRESSION: No acute cardiopulmonary findings. Electronically signed by: Stuart Mcbride M.D. 03/24/2018 2:49 PM Dictated Date/Time: 03/24/2018 2:48 PM CHEST COMBO ANGIO DISSECTION CLINICAL HISTORY: 73 years-old Male presenting with ^h/o AAA, cp, sob, dizziness. TECHNIQUE: Multidetector CT angiography of the chest was performed before and after the administration of intravenous contrast. 3-D volumetric and/or maximum intensity projection (MIP) images were subsequently reconstructed for review. IV contrast: 119 mL of Optiray 320. A dose lowering technique was used consistent with the principles of ALARA (as low as reasonably achievable). COMPARISON: None. CT DOSE (mGy.cm): The estimated cumulative dose is 1744.30. FINDINGS: Salt Grinder topogram: Unremarkable. Vasculature: The study is adequate for assessment of the aorta. Precontrast imaging demonstrates no evidence of intramural hematoma. Atherosclerosis of the aorta with extensive calcified and noncalcified plaque primarily along the descending thoracic aorta. Origins of the major branch vessels remain patent. There is also a focal ulceration of mural thrombus anteriorly along the proximal portion of the descending thoracic aorta measuring 8 mm in width (series 7 image 127). This does not extend beyond the expected contour of the aorta to suggest a penetrating ulcer partially visualized endograft stent within the abdominal aorta. No evidence of dissection or aneurysm. Allowing for timing of the contrast bolus, no gross evidence of a filling defect within the pulmonary arteries to suggest embolus. Main pulmonary artery is not enlarged. No flattening of the interventricular septum. No intracardiac filling defect. No reflux of contrast into the hepatic veins. Remaining chest: On soft tissue windows, normal thyroid and thoracic inlet. No axillary, supraclavicular, hilar, or mediastinal lymphadenopathy. Normal heart size. Coronary artery calcification. No pericardial or pleural effusion. Cholecystectomy clips. Accessory left hepatic artery arising from the left gastric artery. Partially visualized aortic endograft stent. On lung windows, apical predominant mild to moderate emphysema, which is both centrilobular and paraseptal. No focal nodule or infiltrate. Minimal dependent groundglass likely atelectasis. Airways patent. On bone windows, degenerative changes of the spine. Calcification noted in the rotator cuff myotendinous junction on the left likely indicating degenerative change or prior injury. IMPRESSION: 1. Extensive atherosclerotic disease in the thoracic aorta without evidence of aneurysm, dissection, or penetrating ulcer. No acute aortic injury. Mural plaque ulceration noted. 2. Emphysema. 3. No acute intrathoracic pathology. Electronically signed by: Carlin Hopson M.D. 03/24/2018 3:53 PM Dictated Date/Time: 03/24/2018 3:[address] ANGIOGRAPHY OF THE ABDOMEN AND PELVIS WITH CONTRAST CLINICAL HISTORY: Shortness of breath, chest pain and dizziness. History of abdominal aortic aneurysm. COMPARISON STUDY: CT of the abdomen and pelvis July 29, 2016. TECHNIQUE: Axial images of the abdomen and pelvis were obtained during arterial phase following intravenous injection of 119 cc Optiray 320 IV. Sagittal and coronal reconstructions were viewed as well as maximal intensity projections on an independent 3-D workstation. FINDINGS: Please note that the CTA of the chest will be reported separately. Arterial phase images of the liver, spleen, adrenal glands and pancreas are unremarkable as is the left kidney. Marked right renal atrophy is noted. There is a cyst within lower pole of the right kidney. There are postsurgical findings consistent with a right hemicolectomy. There is no evidence for a bowel obstruction. There is extensive colonic diverticulosis without evidence for acute diverticulitis. There is no evidence for a obstruction. No ascites is present. Fat-containing bilateral inguinal hernias, left larger than right, are noted. Note is made of a bifurcated aortoiliac stent graft within an infrarenal abdominal aortic aneurysm which is unchanged in appearance since prior CT. There is no evidence for an endoleak on this arterial phase exam. The aneurysm sac measures 3.6 cm in caliber. There is no evidence for rupture. 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 Note is made of 3 right renal arteries and 2 left renal arteries. The small size of the renal arteries make evaluation for stenosis difficult. No suspicious osseous lesion is present. IMPRESSION: 1. No acute process within the abdomen or pelvis. 2. Status post placement of bifurcated aortoiliac stent graft. No change in appearance since prior CT. No rupture. No endoleak on arterial phase exam. No abdominal aortic dissection. 3. Status post right hemicolectomy. No bowel obstruction. No lymphadenopathy. 4. Extensive colonic diverticulosis without evidence for acute diverticulitis. Electronically signed by: Stuart Mcbride M.D. 03/24/2018 3:58 PM Dictated Date/Time: 03/24/2018 3:47 PM Laboratory Results 03/24/18 14:18 Red Blood Count 4.72, Mean Corpuscular Volume 90.3, Mean Corpuscular Hemoglobin 31.6, Mean Corpuscular Hemoglobin Concent 35.0, Mean Platelet Volume 8.5, Neutrophils (%) (Auto) 52.8, Lymphocytes (%) (Auto) 31.8, Monocytes (%) (Auto) 13.7, Eosinophils (%) (Auto) 1.3, Basophils (%) (Auto) 0.3, Neutrophils # (Auto ) 4.09, Lymphocytes # (Auto) 2.46, Monocytes # (Auto) 1.06, Eosinophils # (Auto ) 0.10, Basophils # (Auto) 0.02 03/24/18 14:18 Test 03/24/18 14:18 03/24/18 15:00 White Blood Count 7.74 K/uL (4.8-10.8) Red Blood Count 4.72 M/uL (4.7-6.1) Hemoglobin 14.9 g/dL (14.0-18.0) Hematocrit 42.6 % (42-52) Mean Corpuscular Volume 90.3 fL (80-100) Mean Corpuscular Hemoglobin 31.6 pg (25-34) Mean Corpuscular Hemoglobin Concent 35.0 g/dl (32-36) Platelet Count 185 K/uL (130-400) Mean Platelet Volume 8.5 fL (7.4-10.4) Neutrophils (%) (Auto) 52.8 % Lymphocytes (%) (Auto) 31.8 % Monocytes (%) (Auto) 13.7 % Eosinophils (%) (Auto) 1.3 % Basophils (%) (Auto) 0.3 % Neutrophils # (Auto) 4.09 K/uL (1.4-6.5) Lymphocytes # (Auto) 2.46 K/uL (1.2-3.4) Monocytes # (Auto) 1.06 K/uL (0.11-0.59) Eosinophils # (Auto) 0.10 K/uL (0-0.5) Basophils # (Auto) 0.02 K/uL (0-0.2) RDW Standard Deviation 45.6 fL (36.4-46.3) RDW Coefficient of Variation 13.8 % (11.5-14.5) Immature Granulocyte % (Auto) 0.1 % Immature Granulocyte # (Auto) 0.01 K/uL (0.00-0.02) Anion Gap 3.0 mmol/L (3-11) Est Creatinine Clear Calc Drug Dose 51.7 ml/min Estimated GFR () 58.6 Estimated GFR (Non- 50.5 BUN/Creatinine Ratio 12.5 (10-20) Calcium Level 8.9 mg/dl (8.5-10.1) Magnesium Level 1.7 mg/dl (1.8-2.4) Total Bilirubin 0.5 mg/dl (0.2-1) Direct Bilirubin 0.1 mg/dl (0-0.2) Aspartate Amino Transf (AST/SGOT) 20 U/L (15-37) Alanine Aminotransferase (ALT/SGPT) 24 U/L (12-78) Alkaline Phosphatase 75 U/L (45-117) Pro-B-Type Natriuretic Peptide 102 pg/ml (0-900) Total Protein 7.1 gm/dl (6.4-8.2) Albumin 3.7 gm/dl (3.4-5.0) Lipase 198 U/L (73-393) Influenza Type A (RT-PCR) Neg for Influ A (NEG) Influenza Type B (RT-PCR) Neg for Influ B (NEG) Laboratory results reviewed by me Medications Administered Medications (Trade) Dose Ordered Sig/Luis Route Start Time Stop Time Status Last Admin Dose Admin Sodium Chloride 500 ml @ 999 mls/hr Q31M STAT IV 5/4/18 14:27 03/24/18 14:57 DC 03/24/18 15:00 999 MLS/HR Aspirin (Aspirin Chew) 324 mg NOW STAT PO 03/24/18 16:40 03/24/18 16:41 DC 03/24/18 16:49 324 MG Magnesium Sulfate (Magnesium Sulfate 1gm / D5W) 2 gm NOW STAT IV 03/24/18 16:45 03/24/18 16:46 DC 03/24/18 16:50 2 GM ECG Per My Interpretation Indication: chest pain Rate (beats per minute): 65 Rhythm: normal sinus Findings: no acute ischemic change, other (normal axis) ED Course 1426: The patient was evaluated in room B11B. A complete history and physical exam was performed. 1634: Upon reexamination, the patient was resting comfortably. I discussed the test results and treatment plan with him. The patient will be evaluated for further management. 1644: I discussed the patient with Dr. Marin [facility] - She will evaluate the patient for further treatment. Medical Decision I reviewed the patient's past medical history, medications, and the nursing notes as described above. Differential diagnosis: Etiologies such as cardiac ischemia, aortic dissection, pulmonary embolism, pneumonia, pneumothorax, musculoskeletal, infections, pericarditis, myocarditis , esophageal rupture, gastrointestinal, as well as others were entertained. The patient is a 73-year-old gentleman with a past medical history of aortic disease status post AAA graft, intracranial aneurysm status post coiling who presents emergency department with intermittent episodes of chest heaviness, shortness of breath, lightheadedness per hpi. On arrival the patient is in no acute distress, afebrile stable vital signs. EKG unremarkable without evidence for acute ischemia. Initial troponin negative. Labs otherwise unremarkable. CTA demonstrates no acute aortic process. Given the patient's age and history of vascular disease the patient has a heart score of 5, moderate risk, thus reasonable to admit the patient for further ACS rule out. Case was discussed with Dr. Marin [facility], who will admit the patient for further management. Medication Reconcilliation Current Medication List: was personally reviewed by me Blood Pressure Screening Patient's blood pressure: Elevated blood pressure Referred to hospitalist. Consults Time Called: 1633 Consulting Physician: Dr. Marin, [facility] hospitalist Returned Call: [phone] I discussed the patient with her - She will evaluate the patient for further treatment. Impression Primary Impression: Substernal chest pain Scribe Attestation The scribe's documentation has been prepared under my direction and personally reviewed by me in its entirety. I confirm that the note above accurately reflects all work, treatment, procedures, and medical decision making performed by me. Departure Information Dispostion Being Evaluated By Hospitalist Referrals Orlin Torres MD (PCP) Patient Instructions My [facility]
[2018-03-24] MEDS ORDERED: MAGNESIUM SULFATE 1GM / D5W 1 GM BAG IV STA (16:45)
[2018-03-24] MEDS ORDERED: MAGNESIUM HYDROXIDE SUSP 30 ML UDC PO PRN (17:00)
[2018-03-24] MEDS ORDERED: NITROGLYCERIN 0.4 MG SL PER TAB CHARGE SL PRN (17:00)
[2018-03-24] MEDS ORDERED: ONDANSETRON INJ 2 MG/ML 2 ML VIAL IV PRN (17:00)
[2018-03-24] MEDS ORDERED: POLYETHYLENE (MIRALAX) 17 GM PACK PO PRN (17:00)
[2018-03-24] MEDS ORDERED: ALUMINUM/MAGNESIUM/SIMETH (MAALOX MAX) 30 ML UDC PO PRN (17:00)
[2018-03-24] MEDS ORDERED: ACETAMINOPHEN 325 MG TAB PO PRN (17:00)
[2018-03-24 17:22] VITALS: O2SAT 95; Ht 172.7 cm; Wt 90.5 kg
[2018-03-24 18:25] VITALS: BP 147/83; PULSE 66; TEMP 36.7; O2SAT 94
--- NOTE | 2018-03-24 18:43 | History and Physical ---
History & Physical Date & Time of Service: March 24, 2018 at 17:40 Chief Complaint: Generally Not Feeling Right - Sent By Primary Care Physician: Orlin Torres MD History of Present Illness Source: patient, spouse, clinic records, hospital records Pt is 73 y/o M with PMH aneurysm S/P repair 2012, HTN, HLD, CKD III, BPH, GERD, brain aneurysm with clipping in 1986, MILADIS intolerant to CPAP presented with complaint intermittent chest pain 2 weeks. Reports gets pressure type sensation to mid upper chest with associated lightheadedness and nausea. This has occurred with sitting and walking. Symptoms last a few seconds to minutes and resolves. Denies syncope. 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 States he has noted for approximately the past week has been short of breath after climbing a flight of stairs. Also has noticed shortness of breath with turning his head to the right. Sometimes he notices some pain to the right side of his neck with turning his head to the right. Denies any associated chest pain or dizziness with this. Patient reports chronic postnasal drip and clear rhinorrhea for years. He has been using Afrin nasal spray regularly for years. Patient states the past week he feels that he has been having some frontal and maxillary pressure. Has noticed cough of clear for the past week. Patient with history of right hemicolectomy 12/2017 for recurrent colon polyps. Reports has been doing well since, however has had loose stools since surgery. Denies watery diarrhea, melena or hematochezia. Denies head injury. Denies fever /chills, diaphoresis, vomiting, HELMS, vision changes, orthopnea, hemoptysis palpitations, sore throat, choking, otalgia, indigestion, abdominal pain, paresthesias, weakness, extremity weakness, extremity edema, rashes, dysuria, hematuria, urinary urgency, weight loss. 04/2017 nuclear stress test-no inducible ischemia, EF 65% 12/2016 carotid Doppler: 50% stenosis right coronary artery, 50-69% stenosis left coronary artery. Past Medical/Surgical History Medical Problems: (1) Abdominal aortic aneurysm Status: Chronic (2) Adenomatous polyps Status: Chronic (3) Aneurysm Status: Resolved (4) Benign hypertension Status: Chronic (5) Carotid artery stenosis Status: Chronic (6) Chronic obstructive lung disease Status: Chronic (7) CKD (chronic kidney disease), stage III Status: Chronic (8) Cough Status: Resolved (9) Diverticular disease of colon Status: Resolved (10) Dyslipidemia Status: Chronic (11) Elevated D-dimer Status: Resolved (12) Finger laceration involving tendon Status: Resolved (13) Gastroesophageal reflux disease Status: Chronic (14) GERD (gastroesophageal reflux disease) Status: Chronic (15) Headache Status: Resolved (16) NO MRI SCANS Permanent Comment: s/p clipping intracranial aneurysm Status: Chronic (17) Spontaneous pneumothorax Status: Resolved Surgical Problems: (1) Back surgery Status: Chronic (2) Cholecystectomy Status: Chronic (3) Hernia repair Status: Chronic (4) History of abdominal aortic aneurysm repair Status: Chronic (5) Repair cerebral aneurysm Status: Chronic (6) S/P right colectomy Status: Resolved Family History Diabetes mellitus Hypertension Social History Smoking Status: Former Smoker Smokeless Tobacco Use: No Alcohol Use: none Drug Use: none Marital Status: Occupational Status: employed Immunizations History of Influenza Vaccine: Yes Influenza Vaccine Date: Aug 07, 2012 History of Tetanus Vaccine?: 2012? Tetanus Immunization Date: Jun 14, 2009 History of Pneumococcal: 2009? Pneumococcal Date: Sep 10, 2009 History of Hepatitis B Vaccine: No Allergies Coded Allergies: Heparin (Verified Allergy, Severe, Do not give the patient IV heparin or SubQ heparin, 03/24/18) FOR [id number] ADMISSION Ciprofloxacin (Verified Allergy, Intermediate, RASH, 12/28/17) red streaking proximal to IV infusion site/pruritus Hydralazine (Verified Adverse Reaction, Intermediate, DELIRIUM, 03/24/18) ALEXIA Inhibitors (Verified Adverse Reaction, Unknown, COUGH, 03/24/18) Salicylates (Verified Adverse Reaction, Unknown, STOMACH IRRITATION, ) Home Medications Scheduled Aspirin (Aspir-81), 81 MG PO DAILY Chlorthalidone (Hygroton), 12.5 MG PO QAM Losartan Potassium (Cozaar), 25 MG PO QAM Metoprolol Succ (Toprol Xl) (Toprol-Xl), 25 MG PO QAM Multivitamin (Multivitamin), 1 TAB PO QAM Niacin (Niaspan Ext Rel), 500 MG PO HS Omeprazole (Prilosec), 20 MG PO QAM Simvastatin (Zocor), 40 MG PO HS Tamsulosin HCl (Tamsulosin HCl), 0.4 MG PO HS Review of Systems See HPI for pertinent positives & negatives. All other systems reviewed and were otherwise negative Physical Exam Vital Signs Date Time Temp Pulse Resp B/P (MAP) Pulse Ox O2 Delivery O2 Flow Rate FiO2 03/24/18 15:50 79 17 140/86 95 Room Air 03/24/18 14:51 93 Room Air 03/24/18 14:15 73 03/24/18 13:56 36.6 74 18 126/79 93 Room Air General Appearance: WD/WN, no apparent distress Head: normocephalic, atraumatic Eyes: normal inspection, PERRL, EOMI, sclerae normal ENT: hearing grossly normal, pharynx normal, + nasal congestion (Bilateral nares), + pertinent finding (Mucous membranes moist) Neck: supple, no JVD, trachea midline, + pertinent finding (Range of motion intact, not tender to palpation) Respiratory/Chest: chest non-tender, lungs clear, normal breath sounds, no respiratory distress, + pertinent finding (No wheezing, rales, rhonchi) Cardiovascular: regular rate, rhythm, no murmur, normal peripheral pulses Abdomen/GI: normal bowel sounds, non tender, soft, + pertinent finding ( Positive well-healed surgical incision to mid abdomen) Extremities/Musculoskelatal: normal inspection, no calf tenderness, normal capillary refill, no pedal edema, normal range of motion, non-tender Neurologic/Psych: alert, normal mood/affect, oriented x 3 Skin: normal color, warm/dry Diagnostics Laboratory Results Results Past 24 Hours Test 03/24/18 14:18 03/24/18 15:00 Range/Units White Blood Count 7.74 4.8-10.8 K/uL Red Blood Count 4.72 4.7-6.1 M/uL Hemoglobin 14.9 14.0-18.0 g/dL Hematocrit 42.6 42-52 % Mean Corpuscular Volume 90.3 80-100 fL Mean Corpuscular Hemoglobin 31.6 25-34 pg Mean Corpuscular Hemoglobin Concent 35.0 32-36 g/dl Platelet Count 185 130-400 K/uL Mean Platelet Volume 8.5 7.4-10.4 fL Neutrophils (%) (Auto) 52.8 % Lymphocytes (%) (Auto) 31.8 % Monocytes (%) (Auto) 13.7 % Eosinophils (%) (Auto) 1.3 % Basophils (%) (Auto) 0.3 % Neutrophils # (Auto) 4.09 1.4-6.5 K/uL Lymphocytes # (Auto) 2.46 1.2-3.4 K/uL Monocytes # (Auto) 1.06 0.11-0.59 K/uL Eosinophils # (Auto) 0.10 0-0.5 K/uL Basophils # (Auto) 0.02 0-0.2 K/uL RDW Standard Deviation 45.6 36.4-46.3 fL RDW Coefficient of Variation 13.8 11.5-14.5 % Immature Granulocyte % (Auto) 0.1 % Immature Granulocyte # (Auto) 0.01 0.00-0.02 K/uL Sodium Level 138 136-145 mmol/L Potassium Level 3.7 3.5-5.1 mmol/L Chloride Level 104 98-107 mmol/L Carbon Dioxide Level 32 21-32 mmol/L Anion Gap 3.0 3-11 mmol/L Blood Urea Nitrogen 17 7-18 mg/dl Creatinine 1.36 0.60-1.40 mg/dl Est Creatinine Clear Calc Drug Dose 51.7 ml/min Estimated GFR () 58.6 Estimated GFR (Non- 50.5 BUN/Creatinine Ratio 12.5 10-20 Random Glucose 74 70-99 mg/dl Calcium Level 8.9 8.5-10.1 mg/dl Magnesium Level 1.7 1.8-2.4 mg/dl Total Bilirubin 0.5 0.2-1 mg/dl Direct Bilirubin 0.1 0-0.2 mg/dl Aspartate Amino Transf (AST/SGOT) 20 15-37 U/L Alanine Aminotransferase (ALT/SGPT) 24 12-78 U/L Alkaline Phosphatase 75 45-117 U/L Troponin I < 0.015 0-0.045 ng/ml Pro-B-Type Natriuretic Peptide 102 0-900 pg/ml Total Protein 7.1 6.4-8.2 gm/dl Albumin 3.7 3.4-5.0 gm/dl Lipase 198 73-393 U/L Influenza Type A (RT-PCR) Neg for Influ A NEG Influenza Type B (RT-PCR) Neg for Influ B NEG Diagnostic Radiology CXR IMPRESSION: No acute cardiopulmonary findings. CTA CHEST IMPRESSION: 1. Extensive atherosclerotic disease in the thoracic aorta without evidence of aneurysm, dissection, or penetrating ulcer. No acute aortic injury. Mural plaque ulceration noted. 2. Emphysema. 3. No acute intrathoracic pathology. CT ABDOMEN/PELVIS IMPRESSION: 1. No acute process within the abdomen or pelvis. 2. Status post placement of bifurcated aortoiliac stent graft. No change in appearance since prior CT. No rupture. No endoleak on arterial phase exam. No abdominal aortic dissection. 3. Status post right hemicolectomy. No bowel obstruction. No lymphadenopathy. 4. Extensive colonic diverticulosis without evidence for acute diverticulitis EKG EKG: NSR, rate 65, no ST elevation noted Impression Assessment and Plan Pt is 73 y/o M with PMH aneurysm S/P repair 2012, HTN, HLD, CKD III, BPH, GERD, brain aneurysm with clipping in 1986, [place]AD[place] intolerant to CPAP presented with complaint intermittent chest pain 2 weeks. CHEST PAIN R/O ACS. Risk factors: HTN, hyperlipidemia Patient intermittent upper mid chest pain with associated nausea and lightheadedness 2 weeks. Reported intermittent exertional shortness of breath with flight of stairs. Also shortness of breath turning head to right. No current CP. Initial troponin negative. EKG without acute ST changes. CTA chest negative for PE, no aneurysm or dissection noted, no infiltrate, + emphysema. In ER patient given aspirin -History negative nuclear stress 04/2017. EF 65%. -Hx carotid doppler 12/2016: -Monitor Vitals -Repeat EKG in am -Will trend troponin -Echo -continue statin -Continue ASA & beta dillon -Nitro prn CP and repeat EKG for CP -cardiology consult LIGHTHEADEDNESS Lightheadedness associated with chest pain. Patient with history of brain aneurysm with clip 1986. 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 Most recent years has been wearing a mask while working. Reported intermittent exertional shortness of breath with flight of stairs. CTA chest negative for PE, no aneurysm or dissection noted, no infiltrate, +emphysema. 93-95% on RA DDx: COPD versus underlying CAD -CP workup as above -CT neck to r/o mass/tracheal obstruction -Consider outpatient PFTs HYPOMAGNESIA Magnesium 1.7. Patient given magnesium 2 g in ER. -Monitor magnesium lab CHRONIC NASAL CONGESTION Patient has been using oxymetazoline for nasal congestion and chronic post nasal drip for years. Pt to stop using oxymetazoline- discussed with pt. -Will start nasal steroid spray and can use saline nasal spray HTN Stable -Continue metoprolol, chlorthalidone, losartan HLD Lipid panel 10/2017: total: 134, HDL: 33, LDL: 61, Triglycerides: 198 -continue statin CKD III Cr: 1.3, pt at approximate baseline -monitor renal functions GERD -Continue PPI MILADIS INTOLERANT TO CPAP DVT Prophylaxis -Lovenox SQ Disposition admit tele Full Code as per discussion with pt Follows with Dr Torres for routine care Pt was seen with Dr Marin. See addendum ATTENDING ADDENDUM: Seen and examined care coordinated with Roshni Gustafson PA-C Labs and images reviewed This is a 73-year-old male with complex past medical history of abdominal aortic aneurysm repair/attention hyperlipidemia/CKD stage III Presented with intermittent chest pain/associated with nausea diaphoresis and shortness of breath Symptoms has been ongoing for the past couple of weeks CTA chest negative for dissection/PE-has advanced emphysema(history of prior smoking/quit smoking approximately 10 years after AAA repair) Admit to telemetry, serial cardiac marker Resting echo in a.m. Cardiology consulted SHORTNESS OF BREATH/DYSPNEA ON EXERTION Chest x-ray shows advanced emphysema Patient reports decreased exercise tolerance/dyspnea on exertion No audible wheeze noted Had pulmonary function test approximately 10 years back Patient will need pulmonology evaluation and repeat pulmonary function test in outpatient OBSTRUCTIVE SLEEP APNEA Patient complains of feeling short of breath after falling asleep/waking up multiple times at night reports loud snoring Concern for obstructive sleep apnea Will need outpatient sleep study Please refer to documentation by Roshni Gustafson PA-C for discussion of other chronic issue Vaishali Marin MD Resuscitation Status Full code VTE Prophylaxis Will order VTE Prophylaxis: Yes Additional Copies To Orlin Torres MD
[2018-03-24] MEDS ORDERED: SODIUM CHLORIDE 0.65% NA SOLN 45 ML (OCEAN) PRN (18:45)
[2018-03-24 19:27] VITALS: BP 169/93; PULSE 73; TEMP 36.5; O2SAT 93
--- NOTE | 2018-03-24 19:28 | DIAGNOSTIC IMAGING REPORT ---
HEAD WITHOUT CONTRAST (CT) CLINICAL HISTORY: 73 years-old Male with lightheaded, hx aneursym repair 1986. Acute lightheadedness TECHNIQUE: Multiple axial CT images of the head were obtained without contrast. A dose lowering technique was utilized adhering to the principles of ALARA. COMPARISON: CT soft tissue neck of same day, CT head 07/29/2016. FINDINGS: No acute intracranial hemorrhage, midline shift, intracranial mass, hydrocephalus, territorial ischemia or abnormal extra-axial collection. Mild cerebral atrophy. Mild ill-defined areas of low-attenuation within the periventricular white matter suggest chronic microvascular ischemic changes. Encephalomalacia of the inferior right frontal lobe suggests remote infarction. Cerebral vascular calcifications are seen at the level of the skull base. Increased attenuation of the arterial structures, secondary to recent contrast-enhanced exam. Aneurysm clips within the suprasellar cistern redemonstrated. Prior left calvarial craniotomy. No acute calvarial fracture. The paranasal sinuses, mastoid air cells, and middle ear cavities are clear. IMPRESSION: No acute intracranial abnormality. The above report was generated using voice recognition software. It may contain grammatical, syntax or spelling errors. Electronically signed by: Ac Eckert M.D. 03/24/2018 7:27 PM Dictated Date/Time: 03/24/2018 7:23 PM
--- NOTE | 2018-03-24 19:43 | DIAGNOSTIC IMAGING REPORT ---
SOFT TISSUE NECK WITHOUT HISTORY: 73 years-old Male r/o mass, tracheal obstruction, SOB with R lateral motion neck acute short of breath with right neck pain COMPARISON: CT head of same day TECHNIQUE: Multiple axial CT images of the soft tissues of the neck were obtained following the administration of IV contrast. A dose lowering technique was used consistent with the principals of PASCUAL. FINDINGS: Prior left calvarial craniotomy with aneurysm clips of the suprasellar cistern. Thinning of the bilateral optic lenses suggest prior cataract repair. Nasopharynx, oral pharynx and hypopharynx appear patent. The vallecula and puriform sinuses, epiglottis and area epiglottic folds are unremarkable. There is mild soft tissue prominence of the bilateral true vocal folds with air seen within the vestibule. No glottic mass lesion identified. Subglottic airway is patent. There is mild transverse narrowing of the intrathoracic trachea. Parotid, submandibular and sublingual glands appear unremarkable. No dominant thyroid nodule or pathologic adenopathy identified. No enhancing mass lesions or fluid collections. Atherosclerosis of the bilateral carotid bulbs. Moderate calcification of the thoracic aorta and proximal great vessels. Severe emphysematous changes of the imaged lung apices with biapical pleural-parenchymal scarring. Calcified granuloma of the left upper lobe. Multilevel facet arthrosis, intervertebral disc space narrowing and endplate spurring. 3 mm retrolisthesis C3 on C4, likely secondary to degenerative changes at this level. Multilevel posterior disc ossify complex formations. Moderate to severe intervertebral disc space narrowing at C3-C4. IMPRESSION: 1. Mild soft tissue prominence of the bilateral true vocal folds without focal mass identified. This could be correlated with direct visualization if of further clinical concern. 2. Advanced emphysema with biapical pleural-parenchymal scarring. 3. No pathologic adenopathy. 4. Multilevel degenerative changes about the cervical spine. The above report was generated using voice recognition software. It may contain grammatical, syntax or spelling errors. Electronically signed by: Ac Eckert M.D. 03/24/2018 7:42 PM Dictated Date/Time: 03/24/2018 7:34 PM
[2018-03-24 20:00] VITALS: O2SAT 94
[2018-03-24] MEDS ORDERED: IV FLUIDS COMPLETED PRN (20:00)
[2018-03-24 20:26] VITALS: BP_SYST 131; BP_SYST 146; BP_SYST 167; BP_DIAS 85; BP_DIAS 86; BP_DIAS 91; PULSE 71; PULSE 73; PULSE 74
[2018-03-24] MEDS ORDERED: TAMSULOSIN HCL 0.4 MG CAP PO SCH (21:00)
[2018-03-24] MEDS ORDERED: NIASPAN 500 MG TABCR PO SCH (21:00)
[2018-03-24] MEDS ORDERED: SIMVASTATIN 40 MG TAB PO SCH (21:00)
[2018-03-24 23:43] VITALS: BP 142/81; PULSE 63; TEMP 36.7; O2SAT 94
[2018-03-25 03:25] VITALS: BP 154/89; PULSE 65; TEMP 36.8; O2SAT 94
[2018-03-25 05:21] LABS: BLOOD UREA NITROGEN 21 mg/dl (7-18); CALCIUM 8.7 mg/dl (8.5-10.1); CARBON DIOXIDE 29 mmol/L (21-32); CREATININE 1.51 mg/dl (0.60-1.40); GLUCOSE 103 mg/dl (70-99); POTASSIUM 3.7 mmol/L (3.5-5.1); SODIUM 138 mmol/L (136-145)
[2018-03-25 06:56] VITALS: BP 159/94; PULSE 70; TEMP 36.4; O2SAT 94
[2018-03-25] MEDS ORDERED: PANTOprazole SOD 40 MG TAB PO SCH (09:00)
[2018-03-25] MEDS ORDERED: METOPROLOL SUCC 25MG EXT REL TAB PO SCH (09:00)
[2018-03-25] MEDS ORDERED: LOSARTAN POTASSIUM 25 MG TAB PO SCH (09:00)
[2018-03-25] MEDS ORDERED: FLUTICASONE PROPIONATE NA SPR 16 GM BTL NAE SCH (09:00)
[2018-03-25] MEDS ORDERED: MULTIVITAMIN TAB PO SCH (09:00)
[2018-03-25] MEDS ORDERED: ASPIRIN 81 MG ECTAB PO SCH (09:00)
[2018-03-25] MEDS ORDERED: CHLORTHALIDONE 25 MG TAB PO SCH (09:00)
--- NOTE | 2018-03-25 11:02 | ECHOCARDIOGRAM REPORT ---
*NOTICE TO RECEIVING [employer] This information is strictly Confidential and protected under [place] law. [place] law prohibits you from making any further disclosure of this information unless further disclosure is expressly permitted by the written consent of the person to whom it pertains or is authorized by law. A general authorization for the release of medical or other information is not sufficient for this purpose. Hospital accepts no responsibility if the information is made available to any other person, INCLUDING THE PATIENT. Interpretation Summary * Name: TANIA DARNELL Study Date: 03/25/2018 09:42 AM BP: 154/89 mmHg * Patient Location: [facility] HR: 65 * : 1945 (M/d/yyyy) Gender: Male Height: 68 in * Age: 73 yrs Ethnicity: [place] Weight: 203 lb * Ordering Physician: Vaishali Marin * Referring Physician: Orlin Torres * Performed By: Radha Moses RDCS * * Reason For Study: CHEST PAIN * BSA: 2.1 m2 * -- Conclusions -- * The left ventricle is normal in size. * There is mild concentric left ventricular hypertrophy. * The left ventricular wall motion is normal. * Left ventricular systolic function is normal. * Ejection Fraction = 55-60%. * Grade I diastolic dysfunction, (abnormal relaxation pattern). * Aortic valve sclerosis mild, without significant aortic valvular stenosis. * Doppler findings do not suggest pulmonary hypertension. Procedure Details * A complete two-dimensional transthoracic echocardiogram was performed (2D, M-mode, Doppler and color flow Doppler). Left Ventricle * The left ventricle is normal in size. * There is mild concentric left ventricular hypertrophy. * Ejection Fraction = 55-60%. * Left ventricular systolic function is normal. * The left ventricular wall motion is normal. Right Ventricle * The right ventricle is normal in size and function. Atria * The left atrial size is normal. * Right atrial size is normal. * No ASD detected; PFO is not assessed. Mitral Valve * The mitral valve anatomy is normal. * There is no mitral valve stenosis. * There is trace mitral regurgitation. Tricuspid Valve * The tricuspid valve is normal. * The tricuspid valve anatomy is normal. * There is no tricuspid stenosis. * There is trace tricuspid regurgitation. * Doppler findings do not suggest pulmonary hypertension. Aortic Valve * The aortic valve is trileaflet. * Aortic valve sclerosis mild, without significant aortic valvular stenosis. * No hemodynamically significant valvular aortic stenosis. * No aortic regurgitation is present. Pulmonic Valve * The pulmonic valve is not well visualized. Great Vessels * The aortic root is normal size. Pericardium/Pleural * There is no pericardial effusion. Left Ventricular Diastolic Function * Grade I diastolic dysfunction, (abnormal relaxation pattern). MMode 2D Measurements and Calculations IVSd 1.2 cm IVSs 2.0 cm LVIDd 4.2 cm LVIDs 3.0 cm LVPWd 1.3 cm LVPWs 2.0 cm IVS/LVPW 0.96 FS 29.1 % EDV(Teich) 78.8 ml ESV(Teich) 34.5 ml EF(Teich) 56.2 % EDV(cubed) 74.3 ml ESV(cubed) 26.5 ml EF(cubed) 64.3 % % IVS thick 62.3 % % LVPW thick 54.3 % LV mass(C)d 190.8 grams LV mass(C)dI 92.8 grams/m\S\2 LV mass(C)s 258.5 grams LV mass(C)sI 125.7 grams/m\S\2 SV(Teich) 44.3 ml SI(Teich) 21.5 ml/m\S\2 SV(cubed) 47.8 ml SI(cubed) 23.3 ml/m\S\2 ACS 1.4 cm LA dimension 4.2 cm asc Aorta Diam 3.8 cm LVOT diam 2.0 cm LVOT area 3.2 cm\S\2 LVAd ap4 33.1 cm\S\2 LVLd ap4 7.7 cm EDV(MOD-sp4) 113.5 ml EDV(sp4-el) 120.9 ml LVAs ap4 18.7 cm\S\2 LVLs ap4 6.3 cm ESV(MOD-sp4) 46.7 ml ESV(sp4-el) 47.2 ml EF(MOD-sp4) 58.9 % EF(sp4-el) 61.0 % LVAd ap2 32.0 cm\S\2 LVLd ap2 7.4 cm EDV(MOD-sp2) 108.4 ml EDV(sp2-el) 117.1 ml LVAs ap2 18.7 cm\S\2 LVLs ap2 6.2 cm ESV(MOD-sp2) 44.8 ml ESV(sp2-el) 47.6 ml EF(MOD-sp2) 58.7 % EF(sp2-el) 59.4 % LVLd %diff -3.56 % EDV(MOD-bp) 110.4 ml LVLs %diff -0.66 % ESV(MOD-bp) 45.5 ml EF(MOD-bp) 58.8 % SV(MOD-sp4) 66.9 ml SI(MOD-sp4) 32.5 ml/m\S\2 SV(MOD-sp2) 63.7 ml SI(MOD-sp2) 31.0 ml/m\S\2 SV(MOD-bp) 64.9 ml SI(MOD-bp) 31.6 ml/m\S\2 SV(sp4-el) 73.7 ml SI(sp4-el) 35.9 ml/m\S\2 SV(sp2-el) 69.5 ml SI(sp2-el) 33.8 ml/m\S\2 Doppler Measurements and Calculations MV E max yobany 60.4 cm/sec MV A max yobany 91.1 cm/sec MV E/A 0.66 MV dec time 0.24 sec Ao V2 max 123.4 cm/sec Ao max PG 6.1 mmHg Ao max PG (full) 3.7 mmHg CHANDLER(V,A) 2.0 cm\S\2 CHANDLER(V,D) 2.0 cm\S\2 LV V1 max PG 2.3 mmHg LV V1 max 76.5 cm/sec PA V2 max 60.9 cm/sec PA max PG 1.5 mmHg PI end-d yobany 119.1 cm/sec
[2018-03-25 12:17] VITALS: BP 138/82; PULSE 87; TEMP 36.6; O2SAT 96
--- NOTE | 2018-03-25 12:38 | Progress Note ---
Internal Med Progress Note Date of Service: March 25, 2018. Provider Documentation: SUBJECTIVE: The patient was seen and examined in telemetry unit. He has a complex past medical history including hypertension, hyperlipidemia, MILADIS, emphysema and CAD Admitted with increasing shortness of breath and chest tightness yesterday Has been ruled out for ACS with unremarkable echo Still has ongoing symptoms of shortness of breath and orthopnea but nothing acute He wants to go home this afternoon Denies any increasing SOB on routine physical activities OBJECTIVE: Vital Signs-as noted below Exam: General-no apparent distress at rest Eyes-normal ENT-normal Neck-supple Lungs-decreased breath sounds with minimal wheezing bilaterally Heart-regular, no murmur appreciated Abdomen-benign, distended, soft, bowel sounds present Extremities-trace edema bilaterally Neuro-alert, awake and oriented 3 No focal neuro deficit Lab data as noted below. CTA::1. No acute process within the abdomen or pelvis. 2. Status post placement of bifurcated aortoiliac stent graft. No change in appearance since prior CT. No rupture. No endoleak on arterial phase exam. No abdominal aortic dissection. 3. Status post right hemicolectomy. No bowel obstruction. No lymphadenopathy. 4. Extensive colonic diverticulosis without evidence for acute diverticulitis. ASSESSMENT & PLAN: Pt is 73 y/o M with PMH aneurysm S/P repair 2012, HTN, HLD, CKD III, BPH, GERD, brain aneurysm with clipping in 1986, MILADIS intolerant to CPAP presented with complaint intermittent chest pain 2 weeks. CHEST PAIN R/O ACS. Risk factors: HTN, hyperlipidemia Patient intermittent upper mid chest pain with associated nausea and lightheadedness 2 weeks. Reported intermittent exertional shortness of breath with flight of stairs. Also shortness of breath turning head to right. No current CP. Initial troponin negative. EKG without acute ST changes. CTA chest negative for PE, no aneurysm or dissection noted, no infiltrate, + emphysema. -History negative nuclear stress 04/2017. EF 65%. -Hx carotid doppler 12/2016: -Serial Troponin and EKG-negative for any ACS -ECHO;;The left ventricle is normal in size. * There is mild concentric left ventricular hypertrophy. * The left ventricular wall motion is normal. * Left ventricular systolic function is normal. * Ejection Fraction = 55-60%. * Grade I diastolic dysfunction, (abnormal relaxation pattern). * Aortic valve sclerosis mild, without significant aortic valvular stenosis. * Doppler findings do not suggest pulmonary hypertension. -continue statin -Continue ASA & beta dillon -Appreciate cardiology input -can be discharged today -Losartan increased to 50mg LIGHTHEADEDNESS Lightheadedness associated with chest pain. Patient with history of brain aneurysm with clip 1986. 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 Most recent years has been wearing a mask while working. Reported intermittent exertional shortness of breath with flight of stairs. CTA chest negative for PE, no aneurysm or dissection noted, no infiltrate, +emphysema. 93-95% on RA DDx: COPD versus underlying CAD -CT neck to r/o mass/tracheal obstruction-no neck mass and no other significant finding :: IMPRESSION: 1. Mild soft tissue prominence of the bilateral true vocal folds without focal mass identified. This could be correlated with direct visualization if of further clinical concern. 2. Advanced emphysema with biapical pleural-parenchymal scarring. 3. No pathologic adenopathy. 4. Multilevel degenerative changes about the cervical spine. -OP ENT referral for Vocal cord abnormality -OP Pulmonary appointment HYPOMAGNESIA Magnesium 1.7. Patient given magnesium 2 g in ER. -Monitor magnesium lab-corrected CHRONIC NASAL CONGESTION Patient has been using oxymetazoline for nasal congestion and chronic post nasal drip for years. Pt to stop using oxymetazoline- discussed with pt. -Will start nasal steroid spray and can use saline nasal spray HTN Stable -Continue metoprolol, chlorthalidone, losartan HLD Lipid panel 10/2017: total: 134, HDL: 33, LDL: 61, Triglycerides: 198 -continue statin CKD III Cr: 1.3, pt at approximate baseline -monitor renal functions-slightly UP this AM -recheck at follow up GERD -Continue PPI MILADIS INTOLERANT TO CPAP DVT Prophylaxis -Lovenox SQ Disposition admit tele Full Code as per discussion with pt Follows with Dr Torres for routine care Discharge home this afternoon Vital Signs: Date Time Temp Pulse Resp B/P (MAP) Pulse Ox O2 Delivery O2 Flow Rate FiO2 03/25/18 12:17 36.6 87 18 138/82 (100) 96 Room Air 03/25/18 12:00 Room Air 03/25/18 07:45 Room Air 03/25/18 06:56 36.4 70 20 159/94 (115) 94 Room Air 03/25/18 04:05 Room Air 03/25/18 03:25 36.8 65 20 154/89 (110) 94 Room Air 03/25/18 00:05 Room Air 03/24/18 23:43 36.7 63 18 142/81 (101) 94 Room Air 03/24/18 20:26 73 146/86 (106) 71 131/85 (100) 74 167/91 (116) 03/24/18 20:00 94 Room Air 03/24/18 19:27 36.5 73 20 169/93 (118) 93 Room Air 03/24/18 18:25 36.7 66 20 147/83 (104) 94 Room Air 03/24/18 17:56 68 16 158/88 98 03/24/18 17:22 95 Room Air 03/24/18 15:50 79 17 140/86 95 Room Air 03/24/18 14:51 93 Room Air 03/24/18 14:15 73 03/24/18 13:56 36.6 74 18 126/79 93 Room Air Lab Results: Results Past 24 Hours Test 03/24/18 14:18 03/24/18 15:00 03/24/18 18:24 03/24/18 22:40 Range/Units White Blood Count 7.74 4.8-10.8 K/uL Red Blood Count 4.72 4.7-6.1 M/uL Hemoglobin 14.9 14.0-18.0 g/dL Hematocrit 42.6 42-52 % Mean Corpuscular Volume 90.3 80-100 fL Mean Corpuscular Hemoglobin 31.6 25-34 pg Mean Corpuscular Hemoglobin Concent 35.0 32-36 g/dl Platelet Count 185 130-400 K/uL Mean Platelet Volume 8.5 7.4-10.4 fL Neutrophils (%) (Auto) 52.8 % Lymphocytes (%) (Auto) 31.8 % Monocytes (%) (Auto) 13.7 % Eosinophils (%) (Auto) 1.3 % Basophils (%) (Auto) 0.3 % Neutrophils # (Auto) 4.09 1.4-6.5 K/uL Lymphocytes # (Auto) 2.46 1.2-3.4 K/uL Monocytes # (Auto) 1.06 0.11-0.59 K/uL Eosinophils # (Auto) 0.10 0-0.5 K/uL Basophils # (Auto) 0.02 0-0.2 K/uL RDW Standard Deviation 45.6 36.4-46.3 fL RDW Coefficient of Variation 13.8 11.5-14.5 % Immature Granulocyte % (Auto) 0.1 % Immature Granulocyte # (Auto) 0.01 0.00-0.02 K/uL Sodium Level 138 136-145 mmol/L Potassium Level 3.7 3.5-5.1 mmol/L Chloride Level 104 98-107 mmol/L Carbon Dioxide Level 32 21-32 mmol/L Anion Gap 3.0 3-11 mmol/L Blood Urea Nitrogen 17 7-18 mg/dl Creatinine 1.36 0.60-1.40 mg/dl Est Creatinine Clear Calc Drug Dose 51.7 ml/min Estimated GFR () 58.6 Estimated GFR (Non- 50.5 BUN/Creatinine Ratio 12.5 10-20 Random Glucose 74 70-99 mg/dl Calcium Level 8.9 8.5-10.1 mg/dl Magnesium Level 1.7 1.8-2.4 mg/dl Total Bilirubin 0.5 0.2-1 mg/dl Direct Bilirubin 0.1 0-0.2 mg/dl Aspartate Amino Transf (AST/SGOT) 20 15-37 U/L Alanine Aminotransferase (ALT/SGPT) 24 12-78 U/L Alkaline Phosphatase 75 45-117 U/L Troponin I < 0.015 < 0.015 0-0.045 ng/ml Pro-B-Type Natriuretic Peptide 102 0-900 pg/ml Total Protein 7.1 6.4-8.2 gm/dl Albumin 3.7 3.4-5.0 gm/dl Lipase 198 73-393 U/L Influenza Type A (RT-PCR) Neg for Influ A NEG Influenza Type B (RT-PCR) Neg for Influ B NEG Prothrombin Time 10.3 9.0-12.0 SECONDS Prothromb Time International Ratio 1.0 0.9-1.1 Test 03/25/18 04:55 03/25/18 10:45 Range/Units Sodium Level 138 136-145 mmol/L Potassium Level 3.7 3.5-5.1 mmol/L Chloride Level 104 98-107 mmol/L Carbon Dioxide Level 29 21-32 mmol/L Anion Gap 5.0 3-11 mmol/L Blood Urea Nitrogen 21 7-18 mg/dl Creatinine 1.51 0.60-1.40 mg/dl Est Creatinine Clear Calc Drug Dose 46.3 ml/min Estimated GFR () 51.6 Estimated GFR (Non- 44.5 BUN/Creatinine Ratio 14.1 10-20 Random Glucose 103 70-99 mg/dl Calcium Level 8.7 8.5-10.1 mg/dl Magnesium Level 2.3 1.8-2.4 mg/dl Troponin I < 0.015 < 0.015 0-0.045 ng/ml
[2018-03-25] MEDS ORDERED: ENOXAPARIN 40 MG/0.4 ML SYR SQ SCH (14:00)
--- NOTE | 2018-03-25 14:08 | CARDIOLOGY CONSULTATION ---
DATE OF CONSULTATION: 03/25/2018 Cardiology consultation. REFERRING: Dr. Marin. PRIMARY CARE PHYSICIAN: Dr. Torres. INDICATIONS: Cardiac assessment, right neck pain. HISTORY OF PRESENT ILLNESS: Patient is a 73-year-old male with multiple vascular risk factors including known abdominal aortic aneurysm status post endovascular repair in 07/2013, history of moderate atherosclerotic carotid disease, hypertension, hyperlipidemia, past tobacco use, and history of obstructive sleep apnea. Patient's clinical history is notable for hospitalization in December undergoing bowel resection with good tolerance. He presented yesterday to primary care physician's office with patient by his description saying he " just felt like he had the flu" with aches and pains all over including chest, legs and arms; sinus congestion and head fullness, mild dizziness and nausea. Patient today specifically denied any symptoms of chest pain. Does not note specific or exertional relationship. Notes no tachypalpitations, syncope or near syncope. Blood pressures have been running elevated in the hospital. Notes no cough, hoarseness, wheeze or hemoptysis. Notes no melena or hematochezia. Weight has been stable. Has been taking medications as prescribed. Of note, on presentation to the Emergency Room here he feels that shortness of breath may have worsened after a recent paint exposure, has had some shortness of breath on climbing flights of stairs as well as when turning head to the right with sinus drip and chronic clear rhinorrhea. He has been using Afrin nasal spray for symptoms. Notes no acute weight loss or discomfort. Notes no unexplained fevers or infections. Notes no rash. Notes no changes in medical regimen. ALLERGIES: HEPARIN, CIPRO, HYDRALAZINE, ALEXIA INHIBITORS AND SALICYLATES. MEDICATIONS: Prior to hospitalization were tamsulosin 0.4 mg p.o. everyday, chlorthalidone 25 mg 1/2 tablet p.o. everyday, metoprolol succinate 25 mg p.o. everyday, simvastatin 40 mg p.o. everyday, niacin 500 mg at bedtime, losartan 25 mg p.o. everyday, omeprazole 20 mg p.o. everyday, aspirin 81 mg per day, and a multivitamin per day. PAST SURGICAL HISTORY: Notable for prior laparoscopic cholecystectomy in 2009 with repair of incarcerated umbilical hernia, remote history of brain aneurysm clipping, lower back surgery and recent procedure of right hemicolectomy in 12/2017. FAMILY HISTORY: Not specifically contributory. SOCIAL HISTORY: Patient is a nonsmoker though with prior history of tobacco use, discontinued in 1999 with 59-49-mtqj-year history. Uses no significant alcoholic beverages. PHYSICAL EXAMINATION: VITAL SIGNS: Heart rate is 70-80, blood pressure is 159/90 equal in both arms. HEENT: Normocephalic, atraumatic. NECK: Thick. There is a faint left-sided carotid bruit, no right-sided carotid today. LUNGS: Reveal mildly diminished breath sounds that are clear. CARDIOVASCULAR: Regular. There is no audible ectopy. There is no murmur or rub. ABDOMEN: Soft, nontender. EXTREMITIES: Without cyanosis or clubbing. There is no peripheral edema. There are intact distal pulses. LABORATORY STUDIES: White cell count 7.7, hemoglobin is 14.9, hematocrit is 42.6. Sodium is 138, potassium is 3.7, chloride is 104, bicarbonate IS 29, BUN is 21, creatinine is 1.5. Troponin I is negative x4, less than 0.015. Lipase is 198. Influenza titers are negative. Chest x-ray reveals no infiltrate or edema. CAT scan of the chest and neck reveals no evidence of dissection with emphysematous changes of the lungs noted, no overt evidence of pulmonary embolus. Echocardiogram demonstrates preserved LV systolic function with mild left ventricular hypertrophy, EF 55-60%, mild aortic sclerosis but no significant valvular disease. Last stress testing was performed in April of 2017 with study negative for stress-induced ischemia by nuclear imaging. IMPRESSION: Patient is a 73-year-old male with multiple vascular history findings, but no overt discerned cardiac disease who presented to outpatient visit with generalized symptoms of weakness, fatigue, malaise, and dyspnea. Per report he also complained of right-sided chest pain which he denies today. Cardiac evaluation in hospital includes negative enzymes, normal EKGs on serial testing and normal echocardiogram, no overt cardiac symptoms or signs observed though patient has noted with multiple risk factors. RECOMMENDATIONS: Would increase losartan to 50 mg per day for hypertension control given elevated blood pressures during this admission and last outpatient followup with cardiology in the next month's time. Patient is to return with any worsening symptoms or complaints.
[2018-03-25] MEDS ORDERED: CZR50 PO (14:33)
--- NOTE | 2018-03-25 14:37 | Discharge Instructions ---
Discharge Instructions Date of Service March 25, 2018. Admission Reason for Admission: Chest Pain Discharge Discharge Diagnosis / Problem: SOB,HTN,MILADIS,COPD Discharge Goals Goal(s): Prevent Disease Progression Activity Recommendations Activity Limitations: resume your previous activity . Instructions / Follow-Up Instructions / Follow-Up Dr Torres on 03/30/18 at 11:05 AM. ENT on 04/18/18 at 9 AM ,Cardiology and Pulmonology will call with appointments Current Hospital Diet Patient's current hospital diet: AHA Diet (Heart Healthy) Discharge Diet Recommended Diet: AHA Diet (Heart Healthy) Pending Studies Studies pending at discharge: no Medical Emergencies . Who to Call and When: Medical Emergencies: If at any time you feel your situation is an emergency, please call 911 immediately. . Non-Emergent Contact Non-Emergency issues call your: Primary Care Provider . Past History Medical & Surgical History: (1) Carotid artery stenosis (2) Aneurysm (3) Chronic obstructive lung disease (4) Benign hypertension (5) CKD (chronic kidney disease), stage III (6) Abdominal aortic aneurysm (7) GERD (gastroesophageal reflux disease) (8) Dyslipidemia (9) Gastroesophageal reflux disease . "Provider Documentation" section prepared by Lai Antonio. .
[2018-03-25 14:40] VITALS: BP 138/82; PULSE 87; TEMP 36.6; O2SAT 96
[2018-03-25 14:47] VITALS: BP 148/77; PULSE 69; TEMP 36.6; O2SAT 95
--- NOTE | 2018-03-25 15:47 | Discharge Summary ---
Discharge Summary Date of Service March 25, 2018. Discharge Summary Admission Date: March 24, 2018 at 16:51 Discharge Date: March 25, 2018 Principal Diagnosis: SOB,HTN,MILADIS,COPD Secondary Diagnoses/Problems: Please see H&P and Hospital Progress note Consultations: Cardiology Medication Reconciliation New Medications: Losartan Potassium (Losartan Potassium) 50 Mg Tab 50 MG PO DAILY, #30 TAB Continued Medications: Aspirin (Aspir-81) 81 Mg Tab 81 MG PO DAILY Chlorthalidone (Hygroton) 25 Mg Tab 12.5 MG PO QAM, TAB Losartan Potassium (Cozaar) 25 Mg Tab 50 MG PO QAM, TAB Metoprolol Succ (Toprol Xl) (Toprol-Xl) 25 Mg Tabcr 25 MG PO QAM, 0 Refills Multivitamin (Multivitamin) Tab 1 TAB PO QAM, 0 Refills Niacin (Niaspan Ext Rel) 500 Mg Tabcr 500 MG PO HS, TAB Omeprazole (Prilosec) 20 Mg Capcr 20 MG PO QAM, 0 Refills Simvastatin (Zocor) 40 Mg Tab 40 MG PO HS, TAB Tamsulosin HCl (Tamsulosin HCl) 0.4 Mg Cap 0.4 MG PO HS Admission Information HPI (per Admitting provider): Pt is 73 y/o M with PMH aneurysm S/P repair 2012, HTN, HLD, CKD III, BPH, GERD, brain aneurysm with clipping in 1986, MILADIS intolerant to CPAP presented with complaint intermittent chest pain 2 weeks. Reports gets pressure type sensation to mid upper chest with associated lightheadedness and nausea. This has occurred with sitting and walking. Symptoms last a few seconds to minutes and resolves. Denies syncope. 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 States he has noted for approximately the past week has been short of breath after climbing a flight of stairs. Also has noticed shortness of breath with turning his head to the right. Sometimes he notices some pain to the right side of his neck with turning his head to the right. Denies any associated chest pain or dizziness with this. Patient reports chronic postnasal drip and clear rhinorrhea for years. He has been using Afrin nasal spray regularly for years. Patient states the past week he feels that he has been having some frontal and maxillary pressure. Has noticed cough of clear for the past week. Patient with history of right hemicolectomy 12/2017 for recurrent colon polyps. Reports has been doing well since, however has had loose stools since surgery. Denies watery diarrhea, melena or hematochezia. Denies head injury. Denies fever /chills, diaphoresis, vomiting, HELMS, vision changes, orthopnea, hemoptysis palpitations, sore throat, choking, otalgia, indigestion, abdominal pain, paresthesias, weakness, extremity weakness, extremity edema, rashes, dysuria, hematuria, urinary urgency, weight loss. 04/2017 nuclear stress test-no inducible ischemia, EF 65% 12/2016 carotid Doppler: 50% stenosis right coronary artery, 50-69% stenosis left coronary artery. Past Medical/Surgical History Medical Problems: (1) Abdominal aortic aneurysm Status: Chronic (2) Adenomatous polyps Status: Chronic (3) Aneurysm Status: Resolved (4) Benign hypertension Status: Chronic (5) Carotid artery stenosis Status: Chronic (6) Chronic obstructive lung disease Status: Chronic (7) CKD (chronic kidney disease), stage III Status: Chronic (8) Cough Status: Resolved (9) Diverticular disease of colon Status: Resolved (10) Dyslipidemia Status: Chronic (11) Elevated D-dimer Status: Resolved (12) Finger laceration involving tendon Status: Resolved (13) Gastroesophageal reflux disease Status: Chronic (14) GERD (gastroesophageal reflux disease) Status: Chronic (15) Headache Status: Resolved (16) NO MRI SCANS Permanent Comment: s/p clipping intracranial aneurysm Status: Chronic (17) Spontaneous pneumothorax Status: Resolved Surgical Problems: (1) Back surgery Status: Chronic (2) Cholecystectomy Status: Chronic (3) Hernia repair Status: Chronic (4) History of abdominal aortic aneurysm repair Status: Chronic (5) Repair cerebral aneurysm Status: Chronic (6) S/P right colectomy Status: Resolved Family History Diabetes mellitus Hypertension Social History Smoking Status: Former Smoker Smokeless Tobacco Use: No Alcohol Use: none Drug Use: none Marital Status: Occupational Status: employed Immunizations History of Influenza Vaccine: Yes Influenza Vaccine Date: Aug 07, 2012 History of Tetanus Vaccine?: 2013? Tetanus Immunization Date: Jun 14, 2009 History of Pneumococcal: 2008? Pneumococcal Date: Sep 10, 2009 History of Hepatitis B Vaccine: No Allergies Coded Allergies: Heparin (Verified Allergy, Severe, Do not give the patient IV heparin or SubQ heparin, 03/24/18) FOR [id number] ADMISSION Ciprofloxacin (Verified Allergy, Intermediate, RASH, 12/28/17) red streaking proximal to IV infusion site/pruritus Hydralazine (Verified Adverse Reaction, Intermediate, DELIRIUM, 03/24/18) ALEXIA Inhibitors (Verified Adverse Reaction, Unknown, COUGH, 03/24/18) Salicylates (Verified Adverse Reaction, Unknown, STOMACH IRRITATION, ) Home Medications Scheduled Aspirin (Aspir-81), 81 MG PO DAILY Chlorthalidone (Hygroton), 12.5 MG PO QAM Losartan Potassium (Cozaar), 25 MG PO QAM Metoprolol Succ (Toprol Xl) (Toprol-Xl), 25 MG PO QAM Multivitamin (Multivitamin), 1 TAB PO QAM Niacin (Niaspan Ext Rel), 500 MG PO HS Omeprazole (Prilosec), 20 MG PO QAM Simvastatin (Zocor), 40 MG PO HS Tamsulosin HCl (Tamsulosin HCl), 0.4 MG PO HS Review of Systems See HPI for pertinent positives & negatives. All other systems reviewed and were otherwise negative Physical Exam H&P v2 Physical Exam Vital Signs Date Time Temp Pulse Resp B/P (MAP) Pulse Ox O2 Delivery O2 Flow Rate FiO2 03/24/18 15:50 79 17 140/86 95 Room Air 03/24/18 14:51 93 Room Air 03/24/18 14:15 73 03/24/18 13:56 36.6 74 18 126/79 93 Room Air General Appearance: WD/WN, no apparent distress Head: normocephalic, atraumatic Eyes: normal inspection, PERRL, EOMI, sclerae normal ENT: hearing grossly normal, pharynx normal, + nasal congestion (Bilateral nares), + pertinent finding (Mucous membranes moist) Neck: supple, no JVD, trachea midline, + pertinent finding (Range of motion intact, not tender to palpation) Respiratory/Chest: chest non-tender, lungs clear, normal breath sounds, no respiratory distress, + pertinent finding (No wheezing, rales, rhonchi) Cardiovascular: regular rate, rhythm, no murmur, normal peripheral pulses Abdomen/GI: normal bowel sounds, non tender, soft, + pertinent finding ( Positive well-healed surgical incision to mid abdomen) Extremities/Musculoskelatal: normal inspection, no calf tenderness, normal capillary refill, no pedal edema, normal range of motion, non-tender Neurologic/Psych: alert, normal mood/affect, oriented x 3 Skin: normal color, warm/dry Diagnostics H&P v2 Diagnostics Laboratory Results Results Past 24 Hours Test 03/24/18 14:18 03/24/18 15:00 Range/Units White Blood Count 7.74 4.8-10.8 K/uL Red Blood Count 4.72 4.7-6.1 M/uL Hemoglobin 14.9 14.0-18.0 g/dL Hematocrit 42.6 42-52 % Mean Corpuscular Volume 90.3 80-100 fL Mean Corpuscular Hemoglobin 31.6 25-34 pg Mean Corpuscular Hemoglobin Concent 35.0 32-36 g/dl Platelet Count 185 130-400 K/uL Mean Platelet Volume 8.5 7.4-10.4 fL Neutrophils (%) (Auto) 52.8 % Lymphocytes (%) (Auto) 31.8 % Monocytes (%) (Auto) 13.7 % Eosinophils (%) (Auto) 1.3 % Basophils (%) (Auto) 0.3 % Neutrophils # (Auto) 4.09 1.4-6.5 K/uL Lymphocytes # (Auto) 2.46 1.2-3.4 K/uL Monocytes # (Auto) 1.06 0.11-0.59 K/uL Eosinophils # (Auto) 0.10 0-0.5 K/uL Basophils # (Auto) 0.02 0-0.2 K/uL RDW Standard Deviation 45.6 36.4-46.3 fL RDW Coefficient of Variation 13.8 11.5-14.5 % Immature Granulocyte % (Auto) 0.1 % Immature Granulocyte # (Auto) 0.01 0.00-0.02 K/uL Sodium Level 138 136-145 mmol/L Potassium Level 3.7 3.5-5.1 mmol/L Chloride Level 104 98-107 mmol/L Carbon Dioxide Level 32 21-32 mmol/L Anion Gap 3.0 3-11 mmol/L Blood Urea Nitrogen 17 7-18 mg/dl Creatinine 1.36 0.60-1.40 mg/dl Est Creatinine Clear Calc Drug Dose 51.7 ml/min Estimated GFR () 58.6 Estimated GFR (Non- 50.5 BUN/Creatinine Ratio 12.5 10-20 Random Glucose 74 70-99 mg/dl Calcium Level 8.9 8.5-10.1 mg/dl Magnesium Level 1.7 1.8-2.4 mg/dl Total Bilirubin 0.5 0.2-1 mg/dl Direct Bilirubin 0.1 0-0.2 mg/dl Aspartate Amino Transf (AST/SGOT) 20 15-37 U/L Alanine Aminotransferase (ALT/SGPT) 24 12-78 U/L Alkaline Phosphatase 75 45-117 U/L Troponin I < 0.015 0-0.045 ng/ml Pro-B-Type Natriuretic Peptide 102 0-900 pg/ml Total Protein 7.1 6.4-8.2 gm/dl Albumin 3.7 3.4-5.0 gm/dl Lipase 198 73-393 U/L Influenza Type A (RT-PCR) Neg for Influ A NEG Influenza Type B (RT-PCR) Neg for Influ B NEG Diagnostic Radiology CXR IMPRESSION: No acute cardiopulmonary findings. CTA CHEST IMPRESSION: 1. Extensive atherosclerotic disease in the thoracic aorta without evidence of aneurysm, dissection, or penetrating ulcer. No acute aortic injury. Mural plaque ulceration noted. 2. Emphysema. 3. No acute intrathoracic pathology. CT ABDOMEN/PELVIS IMPRESSION: 1. No acute process within the abdomen or pelvis. 2. Status post placement of bifurcated aortoiliac stent graft. No change in appearance since prior CT. No rupture. No endoleak on arterial phase exam. No abdominal aortic dissection. 3. Status post right hemicolectomy. No bowel obstruction. No lymphadenopathy. 4. Extensive colonic diverticulosis without evidence for acute diverticulitis EKG EKG: NSR, rate 65, no ST elevation noted Impression H&P v2 Impression Assessment and Plan Pt is 73 y/o M with PMH aneurysm S/P repair 2012, HTN, HLD, CKD III, BPH, GERD, brain aneurysm with clipping in 1986, MILADIS intolerant to CPAP presented with complaint intermittent chest pain 2 weeks. CHEST PAIN R/O ACS. Risk factors: HTN, hyperlipidemia Patient intermittent upper mid chest pain with associated nausea and lightheadedness 2 weeks. Reported intermittent exertional shortness of breath with flight of stairs. Also shortness of breath turning head to right. No current CP. Initial troponin negative. EKG without acute ST changes. CTA chest negative for PE, no aneurysm or dissection noted, no infiltrate, + emphysema. In ER patient given aspirin -History negative nuclear stress 04/2017. EF 65%. -Hx carotid doppler 12/2016: -Monitor Vitals -Repeat EKG in am -Will trend troponin -Echo -continue statin -Continue ASA & beta dillon -Nitro prn CP and repeat EKG for CP -cardiology consult LIGHTHEADEDNESS Lightheadedness associated with chest pain. Patient with history of brain aneurysm with clip 1986. 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 Most recent years has been wearing a mask while working. Reported intermittent exertional shortness of breath with flight of stairs. CTA chest negative for PE, no aneurysm or dissection noted, no infiltrate, +emphysema. 93-95% on RA DDx: COPD versus underlying CAD -CP workup as above -CT neck to r/o mass/tracheal obstruction -Consider outpatient PFTs HYPOMAGNESIA Magnesium 1.7. Patient given magnesium 2 g in ER. -Monitor magnesium lab CHRONIC NASAL CONGESTION Patient has been using oxymetazoline for nasal congestion and chronic post nasal drip for years. Pt to stop using oxymetazoline- discussed with pt. -Will start nasal steroid spray and can use saline nasal spray HTN Stable -Continue metoprolol, chlorthalidone, losartan HLD Lipid panel 10/2017: total: 134, HDL: 33, LDL: 61, Triglycerides: 198 -continue statin CKD III Cr: 1.3, pt at approximate baseline -monitor renal functions GERD -Continue PPI MILADIS INTOLERANT TO CPAP DVT Prophylaxis -Lovenox SQ Disposition admit tele Full Code as per discussion with pt Follows with Dr Torres for routine care Pt was seen with Dr Marin. See addendum ATTENDING ADDENDUM: Seen and examined care coordinated with Roshni Gustafson PA-C Labs and images reviewed This is a 73-year-old male with complex past medical history of abdominal aortic aneurysm repair/attention hyperlipidemia/CKD stage III Presented with intermittent chest pain/associated with nausea diaphoresis and shortness of breath Symptoms has been ongoing for the past couple of weeks CTA chest negative for dissection/PE-has advanced emphysema(history of prior smoking/quit smoking approximately 10 years after AAA repair) Admit to telemetry, serial cardiac marker Resting echo in a.m. Cardiology consulted SHORTNESS OF BREATH/DYSPNEA ON EXERTION Chest x-ray shows advanced emphysema Patient reports decreased exercise tolerance/dyspnea on exertion No audible wheeze noted Had pulmonary function test approximately 10 years back Patient will need pulmonology evaluation and repeat pulmonary function test in outpatient OBSTRUCTIVE SLEEP APNEA Patient complains of feeling short of breath after falling asleep/waking up multiple times at night reports loud snoring Concern for obstructive sleep apnea Will need outpatient sleep study Please refer to documentation by Roshni Gustafson PA-C for discussion of other chronic issue Vaishali Marin MD Resuscitation Status Full code VTE Prophylaxis Will order VTE Prophylaxis: Yes Additional Copies To Orlin Torres MD Physical Exam (per Admitting): General Appearance: WD/WN, no apparent distress Head: normocephalic, atraumatic Eyes: normal inspection, PERRL, EOMI, sclerae normal ENT: hearing grossly normal, pharynx normal, + nasal congestion (Bilateral nares), + pertinent finding (Mucous membranes moist) Neck: supple, no JVD, trachea midline, + pertinent finding (Range of motion intact, not tender to palpation) Respiratory/Chest: chest non-tender, lungs clear, normal breath sounds, no respiratory distress, + pertinent finding (No wheezing, rales, rhonchi) Cardiovascular: regular rate, rhythm, no murmur, normal peripheral pulses Abdomen/GI: normal bowel sounds, non tender, soft, + pertinent finding ( Positive well-healed surgical incision to mid abdomen) Extremities/Musculoskelatal: normal inspection, no calf tenderness, normal capillary refill, no pedal edema, normal range of motion, non-tender Neurologic/Psych: alert, normal mood/affect, oriented x 3 Skin: normal color, warm/dry Hospital Course Pt is 73 y/o M with PMH aneurysm S/P repair 2012, HTN, HLD, CKD III, BPH, GERD, brain aneurysm with clipping in 1986, MILADIS intolerant to CPAP presented with complaint intermittent chest pain 2 weeks. CHEST PAIN R/O ACS. Risk factors: HTN, hyperlipidemia Patient intermittent upper mid chest pain with associated nausea and lightheadedness 2 weeks. Reported intermittent exertional shortness of breath with flight of stairs. Also shortness of breath turning head to right. No current CP. Initial troponin negative. EKG without acute ST changes. CTA chest negative for PE, no aneurysm or dissection noted, no infiltrate, + emphysema. -History negative nuclear stress 04/2017. EF 65%. -Hx carotid doppler 12/2016: -Serial Troponin and EKG-negative for any ACS -ECHO;;The left ventricle is normal in size. * There is mild concentric left ventricular hypertrophy. * The left ventricular wall motion is normal. * Left ventricular systolic function is normal. * Ejection Fraction = 55-60%. * Grade I diastolic dysfunction, (abnormal relaxation pattern). * Aortic valve sclerosis mild, without significant aortic valvular stenosis. * Doppler findings do not suggest pulmonary hypertension. -continue statin -Continue ASA & beta dillon -Appreciate cardiology input -can be discharged today -Losartan increased to 50mg LIGHTHEADEDNESS Lightheadedness associated with chest pain. Patient with history of brain aneurysm with clip 1986. 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 Most recent years has been wearing a mask while working. Reported intermittent exertional shortness of breath with flight of stairs. CTA chest negative for PE, no aneurysm or dissection noted, no infiltrate, +emphysema. 93-95% on RA DDx: COPD versus underlying CAD -CT neck to r/o mass/tracheal obstruction-no neck mass and no other significant finding :: IMPRESSION: 1. Mild soft tissue prominence of the bilateral true vocal folds without focal mass identified. This could be correlated with direct visualization if of further clinical concern. 2. Advanced emphysema with biapical pleural-parenchymal scarring. 3. No pathologic adenopathy. 4. Multilevel degenerative changes about the cervical spine. -OP ENT referral for Vocal cord abnormality -OP Pulmonary appointment HYPOMAGNESIA Magnesium 1.7. Patient given magnesium 2 g in ER. -Monitor magnesium lab-corrected CHRONIC NASAL CONGESTION Patient has been using oxymetazoline for nasal congestion and chronic post nasal drip for years. Pt to stop using oxymetazoline- discussed with pt. -Will start nasal steroid spray and can use saline nasal spray HTN Stable -Continue metoprolol, chlorthalidone, losartan HLD Lipid panel 10/2017: total: 134, HDL: 33, LDL: 61, Triglycerides: 198 -continue statin CKD III Cr: 1.3, pt at approximate baseline -monitor renal functions-slightly UP this AM -recheck at follow up GERD -Continue PPI MILADIS INTOLERANT TO CPAP DVT Prophylaxis -Lovenox SQ Disposition admit tele Full Code as per discussion with pt Follows with Dr Torres for routine care Discharge home this afternoon Total time spent on discharge = 35 minutes This includes examination of the patient, discharge planning, medication reconciliation, and communication with other providers. Discharge Instructions Date of Service March 25, 2018. Admission Reason for Admission: Chest Pain Discharge Discharge Diagnosis / Problem: SOB,HTN,MILADIS,COPD Discharge Goals Goal(s): Prevent Disease Progression Activity Recommendations Activity Limitations: resume your previous activity . Instructions / Follow-Up Instructions / Follow-Up Dr Torres on 03/30/18 at 11:05 AM. ENT on 04/18/18 at 9 AM ,Cardiology and Pulmonology will call with appointments Current Hospital Diet Patient's current hospital diet: AHA Diet (Heart Healthy) Discharge Diet Recommended Diet: AHA Diet (Heart Healthy) Pending Studies Studies pending at discharge: no Medical Emergencies . Who to Call and When: Medical Emergencies: If at any time you feel your situation is an emergency, please call 911 immediately. . Non-Emergent Contact Non-Emergency issues call your: Primary Care Provider . Past History Medical & Surgical History: (1) Carotid artery stenosis (2) Aneurysm (3) Chronic obstructive lung disease (4) Benign hypertension (5) CKD (chronic kidney disease), stage III (6) Abdominal aortic aneurysm (7) GERD (gastroesophageal reflux disease) (8) Dyslipidemia (9) Gastroesophageal reflux disease . "Provider Documentation" section prepared by Lai Antonio. . <Electronically signed by Lai Antonio M.D.> Signed: 03/25/18 3611 Additional Copies To Orlin Torres MD
[2018-03-26] MEDS ORDERED: LOSARTAN POTASSIUM 25 MG TAB PO SCH (09:00)
== END 2018-03-25 15:00 | disposition home or self-care (01) ==
LOC: C.EDB 13:54 → C.MED 16:51 → ENRESERV 17:20
PROVIDERS: ADMIT Hospitalist; ATTEND Internal Medicine
DX: R07.2 Precordial pain (principal); R06.02 Shortness of breath; I12.9 Hypertensive chronic kidney disease with stage 1 through stage 4 chronic kidney disease, or unspecified chronic kidney disease; E78.5 Hyperlipidemia, unspecified; N18.3 Chronic kidney disease, stage 3 (moderate); K21.9 Gastro-esophageal reflux disease without esophagitis; E83.42 Hypomagnesemia; G47.33 Obstructive sleep apnea (adult) (pediatric); I25.10 Atherosclerotic heart disease of native coronary artery without angina pectoris; J44.9 Chronic obstructive pulmonary disease, unspecified; Z90.49 Acquired absence of other specified parts of digestive tract; Z83.3 Family history of diabetes mellitus; Z82.49 Family history of ischemic heart disease and other diseases of the circulatory system; Z79.82 Long term (current) use of aspirin; Z79.899 Other long term (current) drug therapy; Z88.1 Allergy status to other antibiotic agents; Z88.6 Allergy status to analgesic agent; Z87.891 Personal history of nicotine dependence